=== PATIENT | female | born 1940 | race Caucasian/White ===

== ENCOUNTER → 2016-06-22 | Outpatient (CLI) | payer OTHER ==
[~2016-06-22] MED LIST: ACET-1256 PO; ACET500T26 PO; BISO10TA14 PO; FLV1 PO; MTH25 PO; MULT-506 PO; OXYC-57 PO; PLQ200 PO; PRAV20TA PO; PRED20TA PO; RANI150T2 PO
[2016-06-22 11:04] LABS: BASO % 0.5 %; BASO ABS # 0.04 K/uL (0-0.2); COMPLETE YES; EOS % 4.5 %; HEMATOCRIT 38.4 % (37-47); IG% 0.2 %; LYMPH % 25.6 %; LYMPH ABS # 2.12 K/uL (1.2-3.4); MEAN CELL VOLUME 86.3 fL (80-100); MEAN CORPUSCULAR HEMOGLOBIN 28.5 pg (25-34); MEAN CORPUSCULAR HGB CONC 33.1 g/dl (32-36); MEAN PLATELET VOLUME 9.9 fL (7.4-10.4); MONO % 8.1 %; NEUT % 61.1 %; PLATELET COUNT 360 K/uL (130-400); RED BLOOD COUNT 4.45 M/uL (4.2-5.4); WHITE BLOOD COUNT 8.29 K/uL (4.8-10.8)
[2016-06-22 11:38] LABS: ALT/SGPT 17 U/L (12-78); AST/SGOT 18 U/L (15-37); CREATININE 0.74 mg/dl (0.60-1.20)
[2016-06-22 11:41] LABS: ALKALINE PHOSPHATASE 78 U/L (45-117)
== END | disposition home or self-care (01) ==
LOC: C.LAB1850 10:05
PROVIDERS: ATTEND Internal Medicine Rheumatology
DX: M06.041 Rheumatoid arthritis without rheumatoid factor, right hand (principal); M06.042 Rheumatoid arthritis without rheumatoid factor, left hand; Z79.899 Other long term (current) drug therapy

== ENCOUNTER → 2016-11-10 | Outpatient (CLI) | payer OTHER ==
[2016-11-10 12:22] LABS: BASO % 0.4 %; BASO ABS # 0.03 K/uL (0-0.2); COMPLETE YES; EOS % 4.3 %; HEMATOCRIT 41.2 % (37-47); IG% 0.1 %; LYMPH % 28.8 %; MEAN CELL VOLUME 90.2 fL (80-100); MEAN CORPUSCULAR HEMOGLOBIN 29.1 pg (25-34); MEAN CORPUSCULAR HGB CONC 32.3 g/dl (32-36); MEAN PLATELET VOLUME 10.5 fL (7.4-10.4); MONO % 7.6 %; NEUT % 58.8 %; PLATELET COUNT 339 K/uL (130-400); RED BLOOD COUNT 4.57 M/uL (4.2-5.4); WHITE BLOOD COUNT 7.65 K/uL (4.8-10.8)
[2016-11-10 12:42] LABS: ALT/SGPT 16 U/L (12-78); AST/SGOT 21 U/L (15-37); BLOOD UREA NITROGEN 14 mg/dl (7-18); BUN/CREATININE RATIO 19.9 (10-20); CALCIUM 9.3 mg/dl (8.5-10.1); CARBON DIOXIDE 29 mmol/L (21-32); CHLORIDE 103 mmol/L (98-107); CHOLESTEROL 136 mg/dl (0-200); CREATININE 0.71 mg/dl (0.60-1.20); GLUCOSE 79 mg/dl (70-99); SODIUM 141 mmol/L (136-145); TRIGLYCERIDES 113 mg/dl (0-150); VERY LOW DENSITY LIPOPROT CALC 23 mg/dl
[2016-11-10 12:52] LABS: ALB/GLOB RATIO 0.7 (0.9-2); ALKALINE PHOSPHATASE 74 U/L (45-117); CHOLESTEROL/HDL RATIO 3.2; HDL CHOLESTEROL 43 mg/dl; LDL CHOLESTEROL CALCULATED 70 mg/dl
== END | disposition home or self-care (01) ==
LOC: C.LABBFT 07:44
PROVIDERS: ATTEND Internal Medicine
DX: E78.5 Hyperlipidemia, unspecified (principal); I10 Essential (primary) hypertension

== ENCOUNTER 2016-11-14 14:58 | Emergency (ER) | payer OTHER ==
[~2016-11-14] VITALS: Ht 162.6 cm; Wt 59.9 kg
[~2016-11-14 14:58] MED LIST changes: -ACET-1256 PO; -OXYC-57 PO
[2016-11-14 15:12] VITALS: TEMP 36.9; O2SAT 98; Ht 162.6 cm; Wt 59.9 kg
--- NOTE | 2016-11-14 15:17 | EMERGENCY ROOM VISIT NOTE ---
History First contact with patient: 15:08 Stated Complaint: CHEST PAIN History of Present Illness The patient is a 76 year old female who presents to the Emergency Room with complaints of chest pain. History from daughter as the patient has short term memory loss but told her sister the at the time of the event what happened. Around 2pm she called her daughter c/o of chest pain with shortness of breath. She thinks the pain started around 1pm however. Her daughter got there 15 minutes later and she was visibly short of breath and she couldn't help her to calm down. She was holding her lower ribs in pain while lying down on the couch. She told her daughter that it was worse on the right side over her lower ribs. Does not think it is positional, exertional or related to food. After not being able to calm her mother down her daughter called for an ambulance. She is unsure what she was doing when the pain started. No associated nausea or diaphoresis. No pain or shortness of breath since arriving in the ER. 2 days ago had a similar pain across more to right side lasting for around 30 minutes at that time. Review of Systems See HPI for pertinent positives & negatives. A total of 10 systems reviewed and were otherwise negative. Past Medical/Surgical History Medical Problems: (1) Gastric ulcer (2) Hypertension (3) Rheumatoid arthritis Family History No pertinent family history Social History Smoking Status: Never Smoker Drug Use: none Housing Status: lives with family Current/Historical Medications Scheduled Bisoprolol/Hctz (Ziac 10MG/6.25MG), 2 TAB PO DAILY Folic Acid (Folic Acid), 1 MG PO 6XWK Hydroxychloroquine Sulfate (Hydroxychloroquine Sulfat), 200 MG PO BID Methotrexate (Methotrexate), 7.5 TABS PO WK Multivitamin (Multivitamin), 1 TAB PO DAILY Pravastatin (Pravachol ), 20 MG PO DAILY Ranitidine HCl (Ranitidine HCl), 150 MG PO BID Allergies Coded Allergies: No Known Allergies (Unverified , 01/09/16) Physical Exam Vital Signs Date Time Temp Pulse Resp B/P (MAP) Pulse Ox O2 Delivery O2 Flow Rate FiO2 11/14/16 18:33 63 18 151/62 100 Room Air 11/14/16 16:31 62 18 129/57 98 Room Air 11/14/16 16:11 62 11/14/16 15:12 36.9 63 18 136/58 98 Room Air 11/14/16 15:12 98 Room Air 11/14/16 15:12 98 Physical Exam VITAL SIGNS: were reviewed as above GENERAL:no acute distress SKIN: Warm dry and pink, no rashes HEAD: Normocephalic and atraumatic EYES: extraocular muscles intact, pupils equal and reactive to light OROPHARYNX: non erythematous, clear and moist NECK: Supple, no adenopathy or meningismus LUNGS: No respiratory distress, clear to auscultation, no accessory muscle use HEART: Regular rate and rhythm, heart sounds 1+2, no murmurs ABDOMEN: Soft and nontender, bowel sounds normal BACK: no CVA tenderness EXTREMITIES: Warm and well perfused, no calf tenderness/swelling, no pedal edema. NEUROLOGICALLY: Awake alert and oriented without focal extremity deficit. Cranial nerves 2-12 intact. There is no facial droop. Speech is clear. Vision is grossly normal. MUSCULOSKELETAL: Good muscle tone. No evidence of trauma Medical Decision & Procedures ER Provider Diagnostic Interpretation: CHEST ONE VIEW PORTABLE CLINICAL HISTORY: bibasal crackles, shortness of breath dyspnea COMPARISON STUDY: 01/09/2016 FINDINGS: The bones soft tissues and hemidiaphragms are normal. The cardiomediastinal silhouette is normal. The lungs are clear. The pulmonary vasculature is normal. IMPRESSION: Negative chest. Electronically signed by: Dorian Johnson M.D. 11/14/2016 3:57 PM Dictated Date/Time: 11/14/2016 3:57 PM Laboratory Results 11/14/16 15:45 Red Blood Count 3.98, Mean Corpuscular Volume 86.2, Mean Corpuscular Hemoglobin 29.1, Mean Corpuscular Hemoglobin Concent 33.8, Mean Platelet Volume 9.5, Neutrophils (%) (Auto) 84.0, Lymphocytes (%) (Auto) 8.2, Monocytes (%) (Auto) 5.9, Eosinophils (%) (Auto) 1.4, Basophils (%) (Auto) 0.2, Neutrophils # (Auto) 9.89, Lymphocytes # (Auto) 0.97, Monocytes # (Auto) 0.70, Eosinophils # (Auto) 0.17, Basophils # (Auto) 0.02 11/14/16 15:45 Test 11/14/16 15:45 11/14/16 17:55 White Blood Count 11.78 K/uL (4.8-10.8) Red Blood Count 3.98 M/uL (4.2-5.4) Hemoglobin 11.6 g/dL (12.0-16.0) Hematocrit 34.3 % (37-47) Mean Corpuscular Volume 86.2 fL (80-100) Mean Corpuscular Hemoglobin 29.1 pg (25-34) Mean Corpuscular Hemoglobin Concent 33.8 g/dl (32-36) Platelet Count 287 K/uL (130-400) Mean Platelet Volume 9.5 fL (7.4-10.4) Neutrophils (%) (Auto) 84.0 % Lymphocytes (%) (Auto) 8.2 % Monocytes (%) (Auto) 5.9 % Eosinophils (%) (Auto) 1.4 % Basophils (%) (Auto) 0.2 % Neutrophils # (Auto) 9.89 K/uL (1.4-6.5) Lymphocytes # (Auto) 0.97 K/uL (1.2-3.4) Monocytes # (Auto) 0.70 K/uL (0.11-0.59) Eosinophils # (Auto) 0.17 K/uL (0-0.5) Basophils # (Auto) 0.02 K/uL (0-0.2) RDW Standard Deviation 42.4 fL (36.4-46.3) RDW Coefficient of Variation 13.5 % (11.5-14.5) Immature Granulocyte % (Auto) 0.3 % Immature Granulocyte # (Auto) 0.03 K/uL (0.00-0.02) Anion Gap 10.0 mmol/L (3-11) Est Creatinine Clear Calc Drug Dose 48.8 ml/min Estimated GFR () 76.6 Estimated GFR (Non- 66.1 BUN/Creatinine Ratio 17.9 (10-20) Calcium Level 8.6 mg/dl (8.5-10.1) Total Bilirubin 0.4 mg/dl (0.2-1) Direct Bilirubin 0.2 mg/dl (0-0.2) Aspartate Amino Transf (AST/SGOT) 90 U/L (15-37) Alanine Aminotransferase (ALT/SGPT) 51 U/L (12-78) Alkaline Phosphatase 134 U/L (45-117) Troponin I < 0.015 ng/ml (0-0.045) Total Protein 6.8 gm/dl (6.4-8.2) Albumin 2.9 gm/dl (3.4-5.0) Lipase 259 U/L (73-393) Urine Color DK YELLOW Urine Appearance CLEAR (CLEAR) Urine pH 8.5 (4.5-7.5) Urine Specific [place] 1.022 (1.000-1.030) Urine Protein NEG (NEG) Urine Glucose (UA) NEG (NEG) Urine Ketones NEG (NEG) Urine Occult Blood NEG (NEG) Urine Nitrite NEG (NEG) Urine Bilirubin NEG (NEG) Urine Urobilinogen NEG (NEG) Urine Leukocyte Esterase TRACE (NEG) Urine WBC (Auto) 1-5 /hpf (0-5) Urine RBC (Auto) 0-4 /hpf (0-4) Urine Hyaline Casts (Auto) 1-5 /lpf (0-5) Urine Epithelial Cells (Auto) >30 /lpf (0-5) Urine Bacteria (Auto) 1+ (NEG) Medications Administered Medications (Trade) Dose Ordered Sig/Fausto Route Start Time Stop Time Status Last Admin Dose Admin Sodium Chloride 500 ml @ 999 mls/hr Q31M STAT IV 11/14/16 17:23 11/14/16 17:53 DC 11/14/16 17:40 999 MLS/HR ECG Indication: chest pain Rate (beats per minute): 61 Rhythm: normal sinus Findings: no acute ischemic change, other (left axis deviation) Change: no significant change (Jan 09 2016) ED Course 15:15 Complete history and physical performed 15:[address] Medeiros, LFTs and lipase added to labs 17:20 Patient was reassessed and continues to be pain free with no shortness of breath 18:50 Rectal exam performed, FOB negative (see examination) Medical Decision Prior records/ancillary studies reviewed. Triage Nursing notes reviewed. Additional history obtained from patient and her daughter. The patient's history was concerning for chest pain. Differential diagnosis: Etiologies such as cardiac ischemia, aortic dissection, pulmonary embolism, pneumonia, pneumothorax, musculoskeletal, infections, pericarditis, myocarditis , esophageal rupture, gastrointestinal, as well as others were entertained. Physical examination: As above. ER treatment provided: (ASA 324mg and nitro 0.4mg SL given by EMS) NSS 1L bolus On reassessment the patient felt better. Diagnostic interpretation by me: The electrocardiogram was negative for pathologic change. The labs revealed mild leukocytosis, mild acute anemia, slightly elevated AST and ALP. Troponin negative. Repeat troponin pending when handed over to Dr Mala BOJORQUEZ added due to mild leukocytosis and methotrexate use. Most likely reflect contamination from skin michelle but will culture and call patient if positive Rectal examination was performed due to drop in Hgb however FOB was negative. Imaging studies: Chest x-ray as above By the evaluation outlined above emergent etiologies such as cardiac ischemia, aortic dissection, pulmonary embolism, pneumonia, pneumothorax, infections, pericarditis, myocarditis, gastrointestinal, as well as others were deemed relatively unlikely. The cause of her chest pain is unclear currently but possible due to acute anxiety as previous episode in Dec 2015 appears similar to this. The patient and her daughter were informed about the findings as listed above. All questions were answered and she was pleased with the treatment. Return instructions were outlined and the patient was discharged in stable condition. She was without pain or shortness of breath throughout her ER visit. Referral: The patient was referred back to her primary care physician for follow-up in 4 days as previously arranged for a recheck of the current condition. She was referred back to her PCP regarding her elevated blood pressure. Impression Primary Impression: Atypical chest pain Departure Information Dispostion Home / Self-Care Condition GOOD Referrals Bin Mckinnon M.D. (PCP) Additional Instructions You were evaluated in the ER for chest pain and shortness of breath. In the ER your symptoms had resolved. No cause of you pain or shortness of breath was found on labs, CXR or EKG. It is important you therefore follow up with your PCP as previously arranged on Wednesday. Routine labs did show an mildly elevated WBC and mild anemia but are unlikely to be causes for your current admission. Recommend you also follow up with your PCP regarding this. Please return to the ER if you develop more chest pain, shortness of breath, fevers or chills or are concerned. Resident Tracking Resident Involvement: Resident Care Provided Care Provided: Adult ED
--- NOTE | 2016-11-14 15:59 | DIAGNOSTIC IMAGING REPORT ---
CHEST ONE VIEW PORTABLE CLINICAL HISTORY: bibasal crackles, shortness of breath dyspnea COMPARISON STUDY: 01/09/2016 FINDINGS: The bones soft tissues and hemidiaphragms are normal. The cardiomediastinal silhouette is normal. The lungs are clear. The pulmonary vasculature is normal. IMPRESSION: Negative chest. Electronically signed by: Dorian Johnson M.D. 11/14/2016 3:57 PM Dictated Date/Time: 11/14/2016 3:57 PM
[2016-11-14 16:06] LABS: HEMATOCRIT 34.3 % (37-47); MEAN CELL VOLUME 86.2 fL (80-100); MEAN CORPUSCULAR HEMOGLOBIN 29.1 pg (25-34); MEAN CORPUSCULAR HGB CONC 33.8 g/dl (32-36); MEAN PLATELET VOLUME 9.5 fL (7.4-10.4); PLATELET COUNT 287 K/uL (130-400); RED BLOOD COUNT 3.98 M/uL (4.2-5.4); WHITE BLOOD COUNT 11.78 K/uL (4.8-10.8)
[2016-11-14 16:22] LABS: ALT/SGPT 51 U/L (12-78); AST/SGOT 90 U/L (15-37); BLOOD UREA NITROGEN 15 mg/dl (7-18); BUN/CREATININE RATIO 17.9 (10-20); CALCIUM 8.6 mg/dl (8.5-10.1); CARBON DIOXIDE 26 mmol/L (21-32); CHLORIDE 104 mmol/L (98-107); CREATININE 0.86 mg/dl (0.60-1.20); GLUCOSE 132 mg/dl (70-99); POTASSIUM 3.3 mmol/L (3.5-5.1); SODIUM 140 mmol/L (136-145)
[2016-11-14 16:26] LABS: ALKALINE PHOSPHATASE 134 U/L (45-117)
[2016-11-14 16:29] LABS: BASO % 0.2 %; BASO ABS # 0.02 K/uL (0-0.2); COMPLETE YES; EOS % 1.4 %; IG% 0.3 %; LYMPH % 8.2 %; LYMPH ABS # 0.97 K/uL (1.2-3.4); MONO % 5.9 %
--- NOTE | 2016-11-14 16:34 | EMERGENCY ROOM VISIT NOTE ---
History Report prepared by Tony: Jenaro Bosch Under the Supervision of: Dr. Christopher Medeiros M.D. First contact with patient: 15:07 Stated Complaint: CHEST PAIN History of Present Illness The patient is a 76 year old female who presents to the Emergency Room by EMS with complaints of an episode of lower chest pain occurring 2.5 hours ago. She is currently pain free. She estimates that her pain lasted for about 1 hour total. Per daughter, the patient has severe problems with short-term memory. She states that the patient also complained of shortness of breath, but currently has none. The patient denies any nausea or diaphoresis. She has no history of PR. She has a history of similar symptoms occurring last year with uncertain cause. The patient was given 4 nitroglycerin and 1 baby aspirin en route. Her daughter states that the patient has been having her problems with short term memory for many years, but that they have slowly been getting worse. She notes that the patient has never had a head CT, but that her PCP is aware of her memory difficulties. Source of History: patient, family (daughter) Onset: 2.5 hours ago Position: chest (lower) Symptom Intensity: 1 hour total Timing: other (episode) Associated Symptoms: + SOB (resolved), No diaphoresis, No nausea Review of Systems See HPI for pertinent positives & negatives. A total of 10 systems reviewed and were otherwise negative. Past Medical & Surgical Medical Problems: (1) Hypertension Family History No pertinent family history Social History Smoking Status: Never Smoker Drug Use: none Housing Status: lives with family Current/Historical Medications Scheduled Bisoprolol/Hctz (Ziac 10MG/6.25MG), 2 TAB PO DAILY Folic Acid (Folic Acid), 1 MG PO 6XWK Hydroxychloroquine Sulfate (Hydroxychloroquine Sulfat), 200 MG PO BID Methotrexate (Methotrexate), 7.5 TABS PO WK Multivitamin (Multivitamin), 1 TAB PO DAILY Pravastatin (Pravachol ), 20 MG PO DAILY Ranitidine HCl (Ranitidine HCl), 150 MG PO BID Allergies Coded Allergies: No Known Allergies (Unverified , 01/09/16) Physical Exam Vital Signs Date Time Temp Pulse Resp B/P (MAP) Pulse Ox O2 Delivery O2 Flow Rate FiO2 11/14/16 18:33 63 18 151/62 100 Room Air 6/17/17 16:31 62 18 129/57 98 Room Air 11/14/16 16:11 62 11/14/16 15:12 36.9 63 18 136/58 98 Room Air 11/14/16 15:12 98 Room Air 11/14/16 15:12 98 Physical Exam GENERAL: Patient is in no acute distress. HEENT: No acute trauma, normocephalic atraumatic, mucous membranes moist, no nasal congestion, no scleral icterus. NECK: No stridor, no adenopathy, no meningismus, trachea is midline. LUNGS: Crackles at the bases bilaterally. Upper lungs are clear. No wheezing. No respiratory distress. HEART: 2/6 systolic murmur with a regular rate and rhythm. ABDOMEN: Soft, nontender, bowel sounds positive, no hernias, no peritonitis. EXTREMITIES: No cyanosis or edema, full range of motion of all the joints without pain or difficulty, no signs for acute trauma. NEUROLOGIC: Awake and alert. No focal motor deficits. Short term memory issues noted. SKIN: No rash, no jaundice, no diaphoresis. Medical Decision & Procedures ER Provider Diagnostic Interpretation: X-ray results as stated below per interpretation by me and the radiologist: CHEST ONE VIEW PORTABLE FINDINGS: The bones soft tissues and hemidiaphragms are normal. The cardiomediastinal silhouette is normal. The lungs are clear. The pulmonary vasculature is normal. IMPRESSION: Negative chest. Electronically signed by: Dorian Johnson M.D. Laboratory Results 11/14/16 15:45 Red Blood Count 3.98, Mean Corpuscular Volume 86.2, Mean Corpuscular Hemoglobin 29.1, Mean Corpuscular Hemoglobin Concent 33.8, Mean Platelet Volume 9.5, Neutrophils (%) (Auto) 84.0, Lymphocytes (%) (Auto) 8.2, Monocytes (%) (Auto) 5.9, Eosinophils (%) (Auto) 1.4, Basophils (%) (Auto) 0.2, Neutrophils # (Auto) 9.89, Lymphocytes # (Auto) 0.97, Monocytes # (Auto) 0.70, Eosinophils # (Auto) 0.17, Basophils # (Auto) 0.02 11/14/16 15:45 Test 11/14/16 15:45 11/14/16 17:45 11/14/16 17:55 White Blood Count 11.78 K/uL (4.8-10.8) Red Blood Count 3.98 M/uL (4.2-5.4) Hemoglobin 11.6 g/dL (12.0-16.0) Hematocrit 34.3 % (37-47) Mean Corpuscular Volume 86.2 fL (80-100) Mean Corpuscular Hemoglobin 29.1 pg (25-34) Mean Corpuscular Hemoglobin Concent 33.8 g/dl (32-36) Platelet Count 287 K/uL (130-400) Mean Platelet Volume 9.5 fL (7.4-10.4) Neutrophils (%) (Auto) 84.0 % Lymphocytes (%) (Auto) 8.2 % Monocytes (%) (Auto) 5.9 % Eosinophils (%) (Auto) 1.4 % Basophils (%) (Auto) 0.2 % Neutrophils # (Auto) 9.89 K/uL (1.4-6.5) Lymphocytes # (Auto) 0.97 K/uL (1.2-3.4) Monocytes # (Auto) 0.70 K/uL (0.11-0.59) Eosinophils # (Auto) 0.17 K/uL (0-0.5) Basophils # (Auto) 0.02 K/uL (0-0.2) RDW Standard Deviation 42.4 fL (36.4-46.3) RDW Coefficient of Variation 13.5 % (11.5-14.5) Immature Granulocyte % (Auto) 0.3 % Immature Granulocyte # (Auto) 0.03 K/uL (0.00-0.02) Anion Gap 10.0 mmol/L (3-11) Est Creatinine Clear Calc Drug Dose 48.8 ml/min Estimated GFR () 76.6 Estimated GFR (Non- 66.1 BUN/Creatinine Ratio 17.9 (10-20) Calcium Level 8.6 mg/dl (8.5-10.1) Total Bilirubin 0.4 mg/dl (0.2-1) Direct Bilirubin 0.2 mg/dl (0-0.2) Aspartate Amino Transf (AST/SGOT) 90 U/L (15-37) Alanine Aminotransferase (ALT/SGPT) 51 U/L (12-78) Alkaline Phosphatase 134 U/L (45-117) Total Protein 6.8 gm/dl (6.4-8.2) Albumin 2.9 gm/dl (3.4-5.0) Lipase 259 U/L (73-393) Urine Color DK YELLOW Urine Appearance CLEAR (CLEAR) Urine pH 8.5 (4.5-7.5) Urine Specific [place] 1.022 (1.000-1.030) Urine Protein NEG (NEG) Urine Glucose (UA) NEG (NEG) Urine Ketones NEG (NEG) Urine Occult Blood NEG (NEG) Urine Nitrite NEG (NEG) Urine Bilirubin NEG (NEG) Urine Urobilinogen NEG (NEG) Urine Leukocyte Esterase TRACE (NEG) Urine WBC (Auto) 1-5 /hpf (0-5) Urine RBC (Auto) 0-4 /hpf (0-4) Urine Hyaline Casts (Auto) 1-5 /lpf (0-5) Urine Epithelial Cells (Auto) >30 /lpf (0-5) Urine Bacteria (Auto) 1+ (NEG) Point of care troponin testing 2 hours after the initial troponin was negative. Laboratory results reviewed by me. Medications Administered Medications (Trade) Dose Ordered Sig/Fausto Route Start Time Stop Time Status Last Admin Dose Admin Sodium Chloride 500 ml @ 999 mls/hr Q31M STAT IV 11/14/16 17:23 11/14/16 17:53 DC 11/14/16 17:40 999 MLS/HR ECG Indication: chest pain Rate (beats per minute): 61 Rhythm: normal sinus Findings: no acute ischemic change, no ectopy, other (LVH) ED Course 1510: The patient was evaluated in room C5. A complete history and physical exam was performed. 172: Ordered Sodium Chloride 500 ml @ 999 mls/hr IV. 1909: Reevaluated the patient. Discussed results and discharge instructions: she verbalized understanding and agreement. The patient is ready for discharge. Medical Decision The patient is a 76 year old female who presents to the ED with complaints of chest pain. Differential diagnoses considered include PR, gastritis, biliary colic, pancreatitis, cardiac ischemia, pneumonia, and musculoskeletal pain. There is a mild leukocytosis, this could be consistent with infection or just the stress of her presentation. No concerning anemia. No significant electrolyte abnormality or kidney failure. There were a few very mild liver enzyme elevations. No pancreatitis by our testing. Urinalysis does not show infection. Chest x-ray does not show pneumonia or mediastinal widening, there was no CHF. EKG shows a normal sinus rhythm with LVH, no acute ischemia. Cardiac enzyme testing 2 is not suggestive of acute cardiac injury. As per the resident who was working on this case, stool heme testing was negative. The patient was given IV saline, she has had no recurrence of pain. She is anxious for discharge, at this point, the cause for the pain is unclear. She has had similar types of pain before with negative workups. She does not want to stay in the hospital. She was discharged to return if worsening. Medication Reconciliation: I attest that I have personally reviewed the patient' s current medication list. Blood pressure screening: Patient was found to have a slightly elevated blood pressure due to circumstances. I do not believe that the patient requires hypertension monitoring. Impression Primary Impression: Precordial chest pain Scribe Attestation The scribe's documentation has been prepared under my direction and personally reviewed by me in its entirety. I confirm that the note above accurately reflects all work, treatment, procedures, and medical decision making performed by me. Departure Information Dispostion Home / Self-Care Referrals Bin Mckinnon M.D. (PCP) Forms HOME CARE DOCUMENTATION FORM, IMPORTANT VISIT INFORMATION Additional Instructions You were evaluated in the ER for chest pain and shortness of breath. In the ER your symptoms had resolved. No cause of you pain or shortness of breath was found on labs, CXR or EKG. It is important you therefore follow up with your PCP as previously arranged on Wednesday. Routine labs did show an mildly elevated WBC and mild anemia but are unlikely to be causes for your current admission. Recommend you also follow up with your PCP regarding this. Please return to the ER if you develop more chest pain, shortness of breath, fevers or chills or are concerned.
[2016-11-14] MEDS ORDERED: SODIUM CHLORIDE 0.9% 500ML 500 ML IV STA (17:23)
[2016-11-14 18:07] LABS: URINE APPEARANCE CLEAR (CLEAR); URINE BILIRUBIN NEG (NEG); URINE COLOR DK YELLOW; URINE EPITHELIAL CELL AUTO >30 /lpf (0-5); URINE NITRITE NEG (NEG); URINE PH 8.5 (4.5-7.5); URINE SPECIFIC GRAVITY 1.022 (1.000-1.030); UROBILINOGEN NEG (NEG); ZZUR CULT IF INDIC CLEAN CATCH YES
[2016-11-14 18:21] LABS: MANUAL MICROSCOPIC REQUIRED? NO; REVIEW REQ? NO
[2016-11-14 18:24] LABS: SULFASALICYLIC ACID NEG (NEG)
[2016-11-14 18:33] VITALS: BP 151/62; PULSE 63; O2SAT 100
[2016-12-11] MEDS ORDERED: PRED20TA PO (15:05)
[2016-12-11] MEDS ORDERED: ACET-1256 PO (15:05)
== END 2016-11-14 19:10 | disposition home or self-care (01) ==
LOC: EDBD 14:58 → C.EDC 14:59
DX: R07.2 Precordial pain (principal); I10 Essential (primary) hypertension; Z79.899 Other long term (current) drug therapy

== ENCOUNTER → 2016-11-27 | Outpatient (CLI) | payer OTHER ==
[~2016-11-27] MED LIST changes: +ACET-1256 PO; -ACET500T26 PO; +OXYC-57 PO
--- NOTE | 2016-11-27 09:42 | DIAGNOSTIC IMAGING REPORT ---
CHEST CT WITHOUT CONTRAST CT DOSE: 203.56 mGy.cm HISTORY: Pulmonary nodules PULM NODULE/ RUQ PAIN TECHNIQUE: Multiaxial CT images of the chest were performed without contrast. COMPARISON: 09/03/2015 FINDINGS: Scattered basilar interstitial and/or fibrotic change. There may be a component of mild underlying bronchiectatic change. No significant or progressive pulmonary nodularity. Several small mediastinal nodes unchanged in the prior study. Several small axillary nodes also stable. Heart remains mildly enlarged. Limited evaluation of the upper abdomen is unremarkable. IMPRESSION: Stable to slightly improved exam. 2. Chronic bibasilar interstitial and bronchiectatic change. 3. No evidence for new or additional or progressive pulmonary nodularity. 4. Stable nonspecific mediastinal and axillary freedom change. Electronically signed by: Dorian Johnson M.D. 11/27/2016 9:40 AM Dictated Date/Time: 11/27/2016 9:19 AM
--- NOTE | 2016-11-27 09:51 | DIAGNOSTIC IMAGING REPORT ---
ABDOMINAL ULTRASOUND, RIGHT UPPER QUADRANT HISTORY: Right upper quadrant abdominal pain.. COMPARISON: None. FINDINGS: Pancreas: The pancreatic head and tail are obscured by overlying bowel gas. The remaining portions of the pancreas are within normal limits. Liver: The liver is echogenic consistent with fatty change. Gallbladder: Multiple small gallstones. No gallbladder wall thickening. CBD: 4 mm. Right kidney: No hydronephrosis. IMPRESSION: 1. Cholelithiasis. 2. Mild hepatic steatosis. Electronically signed by: Ruben Willis M.D. 11/27/2016 9:49 AM Dictated Date/Time: 11/27/2016 9:48 AM
== END | disposition home or self-care (01) ==
LOC: C.CTS 09:02
PROVIDERS: ATTEND Internal Medicine
DX: R91.8 Other nonspecific abnormal finding of lung field (principal); R10.11 Right upper quadrant pain; K80.20 Calculus of gallbladder without cholecystitis without obstruction

== ENCOUNTER → 2016-12-23 | Outpatient (CLI) | payer OTHER ==
--- NOTE | 2016-12-23 10:30 | DIAGNOSTIC IMAGING REPORT ---
C-SPINE ROUTINE W/FLEX EXT HISTORY: Pain. Arthritis. M06.041 Rheumatoid arthritis involving both hands with negative COMPARISON: None. FINDINGS: The cervical spine is visualized from C1 through the superior endplate of T1. There is no fracture. No evidence for positional subluxation. C5-C6 fusion. Degenerative disc change C3-C4 and C4-C5. Prevertebral soft tissues and the atlantodens interval are intact. IMPRESSION: Degenerative and postoperative change. No evidence for positional subluxation. Alignment remains anatomic throughout. Moderate osteophytic narrowing of the bulk of the neural foramina bilaterally. The above report was generated using voice recognition software. It may contain grammatical, syntax or spelling errors. Electronically signed by: Dorian Johnson M.D. 12/23/2016 10:29 AM Dictated Date/Time: 12/23/2016 10:27 AM
== END | disposition home or self-care (01) ==
LOC: C.RAD1850 10:06
PROVIDERS: ATTEND Internal Medicine Rheumatology
DX: M06.041 Rheumatoid arthritis without rheumatoid factor, right hand (principal); M06.042 Rheumatoid arthritis without rheumatoid factor, left hand; Z79.899 Other long term (current) drug therapy

== ENCOUNTER 2017-01-14 07:43 | Day surgery (SDC) | payer OTHER ==
[~2017-01-14] VITALS: Ht 165.1 cm; Wt 56.8 kg
[~2017-01-14 07:43] MED LIST changes: +LACTATED RINGER'S 1000ML 1,000 ML IV SCH; -OXYC-57 PO
[2017-01-14 08:10] VITALS: BP 132/57; PULSE 55; TEMP 36.6; O2SAT 96; Ht 165.1 cm; Wt 56.8 kg
[2017-01-14] MEDS ORDERED: FENTANYL CITRATE INJ 50 MCG/1 ML 2 ML VIAL ONE ×2 (08:56→09:54)
--- NOTE | 2017-01-14 09:03 | History & Physical Bridge Note ---
H&P Re-Evaluation Bridge Note: I have examined the patient, reviewed the History & Physical and in the interval since the performance of the History & Physical I have noted the following changes of clinical significance: No changes noted all questions answered SO at bedside
[2017-01-14] MEDS ORDERED: LIDOCAINE/EPINEPHRINE 1% 20 ML VIAL ONE (09:17)
[2017-01-14] MEDS ORDERED: CONRAY 60% 50 ML VIAL ONE (09:17)
[2017-01-14] MEDS ORDERED: LIDOCAINE HCL 2% 2 ML VIAL (20MG/ML) ONE (09:46)
[2017-01-14] MEDS ORDERED: DEXAMETHASONE SOD INJ 4 MG/ML VIAL ONE (09:46)
[2017-01-14] MEDS ORDERED: EpHEDrine SULFATE INJ 50 MG/ML AMP ONE (09:46)
[2017-01-14] MEDS ORDERED: ONDANSETRON INJ 2 MG/ML 2 ML VIAL ONE (09:46)
[2017-01-14] MEDS ORDERED: ROCURONIUM BROMIDE 10 MG/ML 5 ML VIAL ONE (09:46)
[2017-01-14] MEDS ORDERED: PROPOFOL IV EMULSION 10 MG/ML 20 ML VIAL IV ONE (09:46)
[2017-01-14] MEDS ORDERED: ONDANSETRON INJ 2 MG/ML 2 ML VIAL IV PRN ×2 (10:00→10:30)
[2017-01-14] MEDS ORDERED: FENTANYL CITRATE INJ 50 MCG/1 ML 2 ML VIAL IV PRN (10:00)
[2017-01-14] MEDS ORDERED: KETOROLAC TROMETHAMINE 30 MG/ML VIAL IV. PRN (10:00)
[2017-01-14] MEDS ORDERED: LABETALOL HCL IV 5 MG/ML 20ML IV PRN (10:00)
[2017-01-14] MEDS ORDERED: ATROPINE SULFATE 0.1 MG/ML 5ML SYR IV PRN (10:00)
--- NOTE | 2017-01-14 10:08 | DIAGNOSTIC IMAGING REPORT ---
INTRAOPERATIVE CHOLANGIOGRAM HISTORY: Post cholecystectomy. FLUOROSCOPY TIME: 2 seconds. 3 fluoroscopic spot images. FINDINGS: Fluoroscopy was provided for an intraoperative cholangiogram status post cholecystectomy. Contrast was injected through the cystic duct remnant. The common bile duct is normal in course and caliber. There are no filling defects seen within the common bile duct to suggest a retained stone. Contrast extends into the small bowel. There is no intrahepatic bile duct dilatation. IMPRESSION: Fluoroscopy provided for an intraoperative cholangiogram status post cholecystectomy. No filling defects within the common bile duct. Electronically signed by: Ruben Willis M.D. 01/14/2017 10:06 AM Dictated Date/Time: 01/14/2017 10:06 AM
[2017-01-14] MEDS ORDERED: NEOSTIGMINE METHYLSULFATE 5 MG/5 ML SYR ONE (10:15)
[2017-01-14] MEDS ORDERED: GLYCOPYRROLATE INJ 0.2 MG/ML VIAL ONE (10:15)
[2017-01-14] MEDS ORDERED: LACTATED RINGER'S 1000ML 1,000 ML IV SCH (10:27)
[2017-01-14] MEDS ORDERED: OXYC-57 PO (10:28)
[2017-01-14] MEDS ORDERED: OXYCODONE/ACETAMINOPHEN 5-325 TAB PO PRN (10:30)
[2017-01-14] MEDS ORDERED: MoRPHine SULFATE 4 MG/ML 1 ML CARP\\VIAL IV PRN (10:30)
--- NOTE | 2017-01-14 10:30 | Discharge Instructions ---
Discharge Instructions Date of Service Jan 14, 2017. Visit Reason for Visit: Gallbladder Stones Discharge Discharge Diagnosis / Problem: laparoscopic cholecystectomy Discharge Goals Goal(s): Decrease discomfort Activity Recommendations Activity Limitations: as noted below Lifting Limitations: no more than 10 pounds Shower/Bathe: tomorrow Driving or Machine Use: resume 3 days after discharge Anesthesia . Post Anesthesia Instructions: If you have had General Anesthesia or IV Sedation: * Do not drive today. * Resume driving when surgeon permits. * Do not make important decisions or sign legal documents today. * Call surgeon for: 1. Temperature elevations greater than 101 degrees F. 2. Uncontrollable pain. 3. Excessive bleeding. 4. Persistent nausea and vomiting. 5. Medication intolerance (nausea, vomiting or rash). * For nausea and vomiting use only clear liquids such as: tea, soda, bouillon until nausea subsides, then gradually increase diet as tolerated. * If you have any concerns or questions, call your surgeon's office. If physician is unavailable and it is an emergency, call 911 or go to the nearest emergency room. . Instructions / Follow-Up Instructions / Follow-Up Dr. Cisneros in 1 week, call [phone] for any questions or concerns You can resume Tylenol when not taking Percocet Diet Recommendations Recommended Home Diet: no limitations Procedures Procedures Performed: Laparoscopic Cholecystectomy with Cholangiogram Pending Studies Studies pending at discharge: no Medical Emergencies . Who to Call and When: Medical Emergencies: If at any time you feel your situation is an emergency, please call 911 immediately. . Non-Emergent Contact Non-Emergency issues call your: Surgeon Call Non-Emergent contact if: you have a fever, temperature is above 101.5, your pain is not controlled, wound has increased redness, you have any medication questions . . "Provider Documentation" section prepared by Genaro Khan. . [place] Drug Monitoring Program Search Results: no issues identified
--- NOTE | 2017-01-14 10:32 | [facility] Operative Report ---
Operative Report Operative Date Jan 14, 2017. Pre-Operative Diagnosis Cholelithiasis Post-Operative Diagnosis Same Procedure(s) Performed Laparoscopic Cholecystectomy with Cholangiogram Surgeon Dr Cisneros Roofer Hel[employer] Surgeon(s) Genaro Khan PA-C Estimated Blood Loss 5ML Findings ccc Specimens A. Gallbladder Description of Procedure OR summary dictated confirmation number [id number] I attest to the content of the Intraoperative Record and any orders documented therein. Any exceptions are noted below.
--- NOTE | 2017-01-14 10:47 | OPERATIVE REPORT ---
DATE OF OPERATION: 01/14/2017 PREOPERATIVE DIAGNOSIS: Chronic cholecystitis, cholelithiasis. POSTOPERATIVE DIAGNOSIS: Same. OPERATIVE PROCEDURE: Laparoscopic cholecystectomy, intraoperative cholangiogram. SURGEON: Dr. Cisneros. CLINICAL RADIOLOGIST: Tommy Khan PA-C. OPERATION AND FINDINGS: SUMMARY: After induction of general endotracheal anesthesia, the patient's abdomen was prepped with Betadine scrubbing solution and properly draped. A small incision was made supraumbilically sufficient enough to place a Veress needle followed by CO2 followed by 5 mm trocar. Point of entry inspected and no injury identified. Under direct visualization, we placed 5 mm epigastric, two 5 mm subcostal ports. Gallbladder was identified, it was quite long. We placed it under traction, dissected out the course at the triangle of Calot. The patient had a very large artery coming up towards the neck of the gallbladder that we were able to identify after we had identified easily the cystic duct, placed a clip proximally. A #4 ureteral catheter transversed the abdominal wall was positioned in the cystic duct. Serial x-rays were taken, free flow into duodenum, no obstruction. Cystic duct was doubly clipped and divided. At this point, we were able to see a large vessel which was going and coursing at the neck of the gallbladder going posteriorly. We freed this up and identified the cystic artery coming up to the gallbladder which was away from it, normal caliber. We doubly clipped and divided and the gallbladder removed in antegrade fashion using mostly blunt dissection and electrocautery at 25. Brought it up, elevated from the liver bed. A few bleeders from the liver bed were controlled. Gallbladder placed in an Endopouch and taken out intact through the epigastric port. The patient had significant gallbladder filled with small stones, bilirubinate type. The subhepatic and suprahepatic area was then checked for hemostasis. A few oozers from the gallbladder fossa were cauterized. The scope was then placed in the right upper quadrant port to visualize the umbilical opening. There were no adhesions appreciated there. Individual trocars removed under direct visualization, last umbilical trocar. Wounds were closed with 4-0 Monocryl. Steri-Strips applied. The procedure was tolerated well by the patient. Estimated blood loss approximately 5 mL. The patient was taken to recovery room in good condition. I attest to the content of the Intraoperative Record and any orders documented therein. Any exception s are noted below.
[2017-01-14 11:15] VITALS: BP 140/67; PULSE 54; TEMP 36.6; O2SAT 94
--- NOTE | 2017-01-14 11:16 | Anesthesiology Progress Note ---
Anesthesia Post Op Note Date & Time Jan 14, 2017 at 11:16 Vital Signs Pain Intensity: 0 Vital Signs Past 12 Hours Date Time Temp Pulse Resp B/P (MAP) Pulse Ox O2 Delivery O2 Flow Rate FiO2 01/14/17 11:07 37.1 01/14/17 11:06 53 21 01/14/17 11:06 53 21 94 01/14/17 11:05 127/59 01/14/17 11:01 52 26 01/14/17 11:01 52 26 94 01/14/17 11:00 132/58 01/14/17 10:56 52 22 93 01/14/17 10:56 52 22 01/14/17 10:55 135/59 01/14/17 10:51 52 25 01/14/17 10:51 52 25 99 01/14/17 10:50 134/80 01/14/17 10:47 51 24 01/14/17 10:47 51 24 99 01/14/17 10:45 146/55 01/14/17 10:42 51 21 01/14/17 10:42 51 21 99 01/14/17 10:41 53 23 99 01/14/17 10:41 53 23 01/14/17 10:40 124/67 01/14/17 10:36 57 13 01/14/17 10:36 57 13 99 01/14/17 10:35 142/55 01/14/17 10:31 62 12 01/14/17 10:31 62 12 152/61 99 01/14/17 10:31 36.7 63 10 152/61 99 Mask 15 01/14/17 08:10 36.6 55 20 132/57 (82) 96 Room Air Notes Mental Status: alert / awake / arousable, participated in evaluation Pt Amnestic to Procedure: Yes Nausea / Vomiting: adequately controlled Pain: adequately controlled Airway Patency, RR, SpO2: stable & adequate BP & HR: stable & adequate Hydration State: stable & adequate Anesthetic Complications: no major complications apparent
[2017-01-14 11:45] VITALS: BP 136/65; PULSE 53; O2SAT 95
[2017-01-14 12:15] VITALS: BP 131/60; PULSE 56; O2SAT 99
== END 2017-01-14 12:40 | disposition home or self-care (01) ==
LOC: C.ACU 07:43
PROVIDERS: ATTEND Surgery
DX: K80.10 Calculus of gallbladder with chronic cholecystitis without obstruction (principal); E78.5 Hyperlipidemia, unspecified; I10 Essential (primary) hypertension; E78.00 Pure hypercholesterolemia, unspecified; Z90.710 Acquired absence of both cervix and uterus; Z90.722 Acquired absence of ovaries, bilateral; Z85.820 Personal history of malignant melanoma of skin; Z82.49 Family history of ischemic heart disease and other diseases of the circulatory system

== ENCOUNTER → 2017-05-17 | Outpatient (CLI) | payer OTHER ==
[~2017-05-17] MED LIST changes: -ACET-1256 PO; -LACTATED RINGER'S 1000ML 1,000 ML IV SCH; +OXYC-57 PO
[2017-05-17 12:24] LABS: BASO % 0.3 %; BASO ABS # 0.03 K/uL (0-0.2); COMPLETE YES; EOS % 4.2 %; HEMATOCRIT 39.7 % (37-47); IG% 0.2 %; LYMPH % 21.6 %; MEAN CELL VOLUME 89.8 fL (80-100); MEAN CORPUSCULAR HEMOGLOBIN 28.5 pg (25-34); MEAN CORPUSCULAR HGB CONC 31.7 g/dl (32-36); MONO % 7.4 %; NEUT % 66.3 %; PLATELET COUNT 396 K/uL (130-400); RED BLOOD COUNT 4.42 M/uL (4.2-5.4)
[2017-05-17 12:39] LABS: ALT/SGPT 17 U/L (12-78); BLOOD UREA NITROGEN 17 mg/dl (7-18); BUN/CREATININE RATIO 23.9 (10-20); CALCIUM 9.1 mg/dl (8.5-10.1); CARBON DIOXIDE 30 mmol/L (21-32); CHLORIDE 102 mmol/L (98-107); CHOLESTEROL 123 mg/dl (0-200); GLUCOSE 101 mg/dl (70-99); POTASSIUM 3.9 mmol/L (3.5-5.1); SODIUM 138 mmol/L (136-145)
[2017-05-17 12:50] LABS: ALB/GLOB RATIO 0.7 (0.9-2); ALKALINE PHOSPHATASE 83 U/L (45-117); AST/SGOT 21 U/L (15-37); CHOLESTEROL/HDL RATIO 3.2; HDL CHOLESTEROL 39 mg/dl; LDL CHOLESTEROL CALCULATED 46 mg/dl; TRIGLYCERIDES 188 mg/dl (0-150); VERY LOW DENSITY LIPOPROT CALC 38 mg/dl
== END | disposition home or self-care (01) ==
LOC: C.LABBFT 08:47
PROVIDERS: ATTEND Internal Medicine
DX: E78.5 Hyperlipidemia, unspecified (principal); I10 Essential (primary) hypertension; G47.00 Insomnia, unspecified; M06.041 Rheumatoid arthritis without rheumatoid factor, right hand; M06.042 Rheumatoid arthritis without rheumatoid factor, left hand; Z51.81 Encounter for therapeutic drug level monitoring; Z79.899 Other long term (current) drug therapy

== ENCOUNTER → 2017-05-21 | Outpatient (CLI) | payer OTHER ==
[2017-05-21 12:19] LABS: BASO % 0.2 %; BASO ABS # 0.02 K/uL (0-0.2); COMPLETE YES; EOS % 1.3 %; HEMATOCRIT 40.1 % (37-47); IG% 0.2 %; LYMPH % 14.6 %; LYMPH ABS # 1.58 K/uL (1.2-3.4); MEAN CELL VOLUME 88.5 fL (80-100); MEAN CORPUSCULAR HEMOGLOBIN 28.5 pg (25-34); MEAN CORPUSCULAR HGB CONC 32.2 g/dl (32-36); MEAN PLATELET VOLUME 9.9 fL (7.4-10.4); MONO % 4.3 %; NEUT % 79.4 %; PLATELET COUNT 383 K/uL (130-400); RED BLOOD COUNT 4.53 M/uL (4.2-5.4); WHITE BLOOD COUNT 10.81 K/uL (4.8-10.8)
[2017-05-21 12:33] LABS: ALT/SGPT 16 U/L (12-78); AST/SGOT 21 U/L (15-37); CREATININE 0.71 mg/dl (0.60-1.20)
[2017-05-21 12:39] LABS: ALKALINE PHOSPHATASE 80 U/L (45-117)
== END | disposition home or self-care (01) ==
LOC: C.LABBFT 09:11
PROVIDERS: ATTEND Internal Medicine
DX: E78.5 Hyperlipidemia, unspecified (principal); I10 Essential (primary) hypertension; G47.00 Insomnia, unspecified; Z79.899 Other long term (current) drug therapy; M06.041 Rheumatoid arthritis without rheumatoid factor, right hand; M06.042 Rheumatoid arthritis without rheumatoid factor, left hand

== ENCOUNTER → 2017-09-24 | Outpatient (CLI) | payer OTHER ==
[~2017-09-24] MED LIST changes: -OXYC-57 PO
[2017-09-24 12:36] LABS: BASO % 0.2 %; BASO ABS # 0.02 K/uL (0-0.2); EOS % 9.2 %; EOS ABS # 0.79 K/uL (0-0.5); HEMATOCRIT 37.7 % (37-47); HEMOGLOBIN 12.2 g/dL (12.0-16.0); IG# 0.02 K/uL (0.00-0.02); LYMPH % 23.1 %; LYMPH ABS # 1.99 K/uL (1.2-3.4); MEAN CELL VOLUME 86.7 fL (80-100); MEAN CORPUSCULAR HGB CONC 32.4 g/dl (32-36); MEAN PLATELET VOLUME 9.5 fL (7.4-10.4); MONO % 7.9 %; MONO ABS # 0.68 K/uL (0.11-0.59); NEUT % 59.4 %; NEUT ABS # 5.11 K/uL (1.4-6.5); PLATELET COUNT 450 K/uL (130-400); RED CELL DISTRIBUTION WIDTH CV 14.6 % (11.5-14.5); WHITE BLOOD COUNT 8.61 K/uL (4.8-10.8)
[2017-09-24 12:50] LABS: ALBUMIN 2.9 gm/dl (3.4-5.0); ALT/SGPT 17 U/L (12-78); AST/SGOT 20 U/L (15-37); CREATININE 0.74 mg/dl (0.60-1.20)
[2017-09-24 12:53] LABS: ALKALINE PHOSPHATASE 76 U/L (45-117); TOTAL PROTEIN 7.5 gm/dl (6.4-8.2)
== END | disposition home or self-care (01) ==
LOC: C.LAB1850 10:13
PROVIDERS: ATTEND Internal Medicine Rheumatology
DX: M25.569 Pain in unspecified knee (principal)

== ENCOUNTER → 2018-01-21 | Outpatient (CLI) | payer OTHER ==
[2018-01-21 11:11] LABS: BASO % 0.4 %; BASO ABS # 0.04 K/uL (0-0.2); EOS % 8.6 %; EOS ABS # 0.86 K/uL (0-0.5); HEMATOCRIT 36.7 % (37-47); IG# 0.02 K/uL (0.00-0.02); LYMPH ABS # 1.99 K/uL (1.2-3.4); MEAN CELL VOLUME 85.5 fL (80-100); MEAN CORPUSCULAR HGB CONC 32.7 g/dl (32-36); MEAN PLATELET VOLUME 9.4 fL (7.4-10.4); MONO % 7.3 %; MONO ABS # 0.73 K/uL (0.11-0.59); NEUT % 63.5 %; NEUT ABS # 6.31 K/uL (1.4-6.5); PLATELET COUNT 401 K/uL (130-400); RED CELL DISTRIBUTION WIDTH CV 14.6 % (11.5-14.5); RED CELL DISTRIBUTION WIDTH SD 44.8 fL (36.4-46.3); WHITE BLOOD COUNT 9.95 K/uL (4.8-10.8)
== END | disposition home or self-care (01) ==
LOC: C.LAB1850 10:12
PROVIDERS: ATTEND Internal Medicine Rheumatology
DX: Z87.11 Personal history of peptic ulcer disease (principal); M06.041 Rheumatoid arthritis without rheumatoid factor, right hand; M06.042 Rheumatoid arthritis without rheumatoid factor, left hand; Z79.899 Other long term (current) drug therapy

== ENCOUNTER 2020-08-12 16:31 | Inpatient (IN) ==
[2020-08-12] MEDS ORDERED: SODIUM CHLORIDE 0.9% 500 ML IV STA (18:36)
--- NOTE | 2020-08-12 18:54 | Emergency Department Note ---
Impression & Plan Acute confusion, Rectal prolapse, Rectal bleeding, Acute UTI ED Provider Note NAME: GLENN VU AGE: 80 SEX: F : 1940 ARRIVES VIA: Walk-In INFORMANT: [Patient][daughter] ED PROVIDER(S): [Christopher Medeiros MD] CHIEF COMPLAINT: Rectal bleeding HISTORY OF PRESENT ILLNESS: The patient is a 80-year-old female who presents to the ED with rectal bleeding and what the daughter thinks is rectal prolapse. The patient was here yesterday for the same thing. The patient has dementia so, it is hard sometimes to get a history from her. The daughter gave most of the story. Patient does not seem to be in pain. Today, there was a fullness in the rectal area noted and there was some bleeding. The patient was brought for evaluation. The patient's daughter states that her mom is living in a senior center and has no help or care. She does not think her mom is currently able to stay in that living situation. She needs a higher level of care such as [facility]. She does not feel that her mother is safe for discharge back to her senior center. The patient denies any pain currently. She is resting comfortably. She cannot remember if she was straining when the prolapse happened today but, she says she does remember the prolapse happening once before when she tried to have a bowel movement. Given the circumstances and the patient's dementia, no further history obtainable. REVIEW OF SYSTEMS: Unobtainable given the patient's dementia. PMHx/PSHx: See Below SOCIAL HISTORY: See Below. PHYSICAL EXAM: GENERAL: Patient is in no acute distress. HEENT: No acute trauma, normocephalic atraumatic, mucous membranes moist, no nasal congestion, no scleral icterus. NECK: No stridor, no adenopathy, no meningismus, trachea is midline. LUNGS: Clear to auscultation bilaterally, no wheeze, no rhonchi, breath sounds equal. HEART: Without murmurs gallops or rubs, regular rate and rhythm. ABDOMEN: Soft, nontender, bowel sounds positive, no hernias, no peritonitis. EXTREMITIES: No cyanosis or edema, full range of motion of all the joints without pain or difficulty, no signs for acute trauma. NEUROLOGIC: Awake and alert, poor historian, no acute motor or sensory deficits, no focal weakness. SKIN: No rash, no jaundice, no diaphoresis. Rectal: The patient has a very subtle fullness in the anal region. This was easily put back with a digital exam. There were a few small hemorrhoids seen. There was no rectal bleeding. There was a vaginal fullness also noted that was easily reducible. DIFFERENTIAL DIAGNOSIS: Infection, dehydration, metabolic abnormality, hypo/hyperglycemia, rectal prolapse, hemorrhoids, polyp, cystocele, UTI, intracranial bleeding, electrolyte disturbance, anemia, hypoxia, cardiac sources, intracerebral event, toxicologic issues, stroke, TIA, as well as other pathologies. EMERGENCY DEPARTMENT COURSE/PROCEDURES: ECG: Indication was weakness. The ECG shows a normal sinus rhythm with some baseline artifact. The rate is 65. There are potential findings consistent with an old lateral infarct. No ST elevation, no PVCs. The QTc is 449. Continuous Cardiac Monitoring: An order was placed for continuous cardiac monitoring. The monitor shows a rate of 65 with normal sinus rhythm. MEDICAL DECISION MAKING: There is a mild leukocytosis which could be consistent with infection. There was no worrisome anemia. There was a normal platelet count. No significant electrolyte abnormality or kidney failure. Lactic acid level was not elevated making sepsis less likely. No concerning liver enzyme elevation. ECG showed a sinus rhythm, there was no acute ischemic change. Cardiac enzyme testing x1 is not consistent with acute cardiac injury. No evidence for pancreatitis. The patient appeared to be in a euthyroid state. Urinalysis does suggest infection with white cells and bacteria. Urine culture is pending. Covid testing returned negative. Chest film showed some congestion at the left lower lung, no pneumothorax or CHF. Brain CT showed no acute bleed or mass-effect. Chest CT did not show any pneumonia or lung mass. Abdominal and pelvis CT showed a potential proctitis, there was no bowel obstruction, no abscess. On exam, the patient did demonstrate some confusion. No focal neurologic findings. The rectal prolapse was minimal and easily reduced clinically. There was no active bleeding. The patient received IV ceftriaxone as treatment for the UTI. She received IV saline, 500 cc. The patient presents with some confusion, she has been having rectal bleeding and some rectal prolapse. She has a UTI. Her living situation is not conducive to her current issues. Her daughter is concerned that she is going to require a higher level of care. I did speak with case management, the patient does require a hospital stay. The on-call hospitalist was consulted. Patient will likely need placement in a care facility once her acute medical issues have been addressed. Past Med/Surg History Medical History Anemia Anxiety Arthralgia of multiple sites Candidal intertrigo Epigastric abdominal pain Gall bladder stones Hypercholesteremia Hypertension Insomnia Malignant melanoma of skin Memory loss Patellofemoral syndrome Pulmonary nodules Rheumatoid arthritis Shingles Surgical History History of colonoscopy History of esophagogastroduodenoscopy (EGD) History of tonsillectomy History of total abdominal hysterectomy and bilateral salpingo-oophorectomy Family History Mother Alzheimer disease Myocardial infarction Hypertension Father Hypertension CHF (congestive heart failure) Sister Gallbladder disease Hypertension Denies family history of Ovarian cancer Prostate cancer Diabetes Breast cancer Colorectal cancer Social History Smoking Status: Never smoker Second Hand Exposure: Yes; Hx Alcohol Use: No Hx Substance Use: No Preferred Language: Frisian Communication Ability: Effective Visual Impairment: No Limitations Hearing Ability: Normal Judicial Reporter Required: No Beliefs That Will Affect Care: None marital status: Current Living Situation: Alone Current Living Situation Comment: [facility] current occupational status: retired current occupation: retired from career as a medical records secretary Feels Safe at Home: Yes Childhood Exposure to Second-Hand Smoke: Yes caffeine: No during the past year weight has: remained stable Dental Care, Regularly: No Physical Activity Frequency: Daily Seatbelt Use: always Sunscreen Use: No Assistive Devices: None Allergies Allergies Allergy/AdvReac Type Severity Reaction Status Date / Time dexlansoprazole Allergy Unknown CAN'T Verified 08/12/20 19:43 [From Dexilant] REMEMBER pantoprazole AdvReac Intermediate Diarrhea Verified 08/12/20 19:43 Home Meds Home Medications Medication Instructions Recorded Confirmed folic acid 1 mg PO [id number] 06/27/18 08/12/20 methotrexate sodium 15 mg PO WK 06/27/18 08/12/20 multivitamin [Multiple Vitamins] 1 tab PO DAILY 06/27/18 08/12/20 Previous Rx's Medication Instructions Recorded pravastatin 20 mg tablet 20 mg PO DAILY #90 tab 11/27/19 bisoprolol 10 1 tab PO BID #60 tab 03/14/20 mg-hydrochlorothiazide 6.25 mg tablet hydroxychloroquine 200 mg tablet 200 mg PO DAILY #30 tab 03/28/20 prednisone 5 mg tablet 5 mg PO DAILY #90 tab 06/18/20 Results & Data (ED) Vital Signs Vital Signs - 24 hr 08/12/20 16:50 08/12/20 19:22 08/12/20 21:00 Temperature 36.7 C Temperature Source Temporal Artery Scan Pulse Rate 68 Pulse Rate [Right] 61 66 Pulse Rhythm [Right] Regular Regular Pulse Strength [Right] Normal Normal Respiratory Rate 20 18 20 Respiratory Effort / Characteristics Non-Labored Non-Labored Spontaneous Non-Labored Spontaneous Respiratory Depth Normal Normal Respiratory Pattern Regular Regular Blood Pressure 145/79 H Blood Pressure [Right Arm] 137/62 136/60 Blood Pressure Mean 101 Blood Pressure Mean [Right Arm] 87 85 Blood Pressure Position [Right Arm] Lying Lying Pulse Oximetry 92 94 94 Oxygen Delivery Method Room Air Room Air Sepsis Recent Fever Within 48 Hours No Sepsis New/Unexplained Change in Mental Status N/A Sepsis Action Taken by Nursing No Action Required 08/12/20 22:00 Temperature Temperature Source Pulse Rate Pulse Rate [Right] 61 Pulse Rhythm [Right] Regular Pulse Strength [Right] Normal Respiratory Rate 18 Respiratory Effort / Characteristics Non-Labored Spontaneous Respiratory Depth Normal Respiratory Pattern Regular Blood Pressure Blood Pressure [Right Arm] 144/58 H Blood Pressure Mean Blood Pressure Mean [Right Arm] 86 Blood Pressure Position [Right Arm] Lying Pulse Oximetry 98 Oxygen Delivery Method Room Air Sepsis Recent Fever Within 48 Hours Sepsis New/Unexplained Change in Mental Status Sepsis Action Taken by Care Home Medications Current Medication List: was personally reviewed by me Laboratory Data Attestation: I reviewed the patient's lab results. Result diagrams: 08/13/20 06:20 08/13/20 06:20 Lab Results 08/12/20 08/12/20 08/12/20 Range/Units 19:13 19:13 19:30 WBC 11.56 H (4.8-10.8) K/uL RBC 4.38 (4.2-5.4) M/uL Hgb 13.8 (12.0-16.0) g/dL Hct 41.3 (37-47) % MCV 94.3 (80-100) fL MCH 31.5 (25-34) pg MCHC 33.4 (32-36) g/dL RDW Std Deviation 49.2 H (36.4-46.3) fL RDW Coeff of Teddy 14.5 (11.5-14.5) % Plt Count 249 (130-400) K/uL MPV 10.4 (7.4-10.4) fL Immature Gran % (Auto) 0.3 % Neut % (Auto) 83.8 % Lymph % (Auto) 9.1 % [place] % (Auto) 5.4 % Eos % (Auto) 1.2 % Baso % (Auto) 0.2 % Neut # (Auto) 9.68 H (1.4-6.5) K/uL Lymph # (Auto) 1.05 L (1.2-3.4) K/uL [place] # (Auto) 0.63 H (0.11-0.59) K/uL Eos # (Auto) 0.14 (0-0.5) K/uL Baso # (Auto) 0.02 (0-0.2) K/uL Immature Gran # (Auto) 0.04 H (0.00-0.02) K/uL Sodium 138 (136-145) mmol/L Potassium 3.6 (3.5-5.1) mmol/L Chloride 103 (98-107) mmol/L Carbon Dioxide 28 (21-32) mmol/L Anion Gap 7.0 (3-11) BUN 20 H (7-18) mg/dl Creatinine 0.82 (0.6-1.2) mg/dl Est Cr Clr Drug Dosing 53.8 ml/min Est GFR ( Amer) 78.9 Est GFR (Non-Af Amer) 68.1 BUN/Creatinine Ratio 24.3 H (10-20) Glucose 116 H (70-99) mg/dl Lactate (0.4-2.0) mmol/L Calcium 9.4 (8.5-10.1) mg/dl Magnesium 2.2 (1.8-2.4) mg/dl Total Bilirubin 0.3 (0.2-1) mg/dl AST 24 (15-37) U/L ALT 23 (12-78) U/L Alkaline Phosphatase 82 (45-117) U/L Troponin I < 0.015 (0-0.045) ng/ml Total Protein 7.0 (6.4-8.2) gm/dl Albumin 3.1 L (3.4-5.0) gm/dl Globulin 3.9 (2.5-4.0) gm/dl Albumin/Globulin Ratio 0.8 L (0.9-2) Lipase 134 (73-393) U/L TSH 1.340 (0.300-4.500) uIu/ml Urine Color Dark Yellow Urine Appearance Clear (Clear) Urine pH 6.5 (4.5-7.5) Ur Specific [place] 1.021 (1.000-1.030) Urine Protein Negative (Negative) Urine Glucose (UA) Negative (Negative) Urine Ketones Negative (Negative) Urine Blood Negative (Negative) Urine Nitrite Positive A (Negative) Urine Bilirubin Negative (Negative) Urine Urobilinogen Negative (Negative) Ur Leukocyte Esterase 1+ H (Negative) Urine WBC (Auto) >30 H (0-5) /hpf Urine RBC (Auto) 0-4 (0-4) /hpf U Hyaline Cast (Auto) 1-5 (0-5) /lpf U Epithel Cells (Auto) 0-5 (0-5) /lpf Urine Bacteria (Auto) 4+ H (Negative) COVID-19 Eval Order SARS-CoV-2, RNA, NAAT (NEGATIVE) 08/12/20 08/12/20 08/12/20 Range/Units 20:54 22:04 22:04 WBC (4.8-10.8) K/uL RBC (4.2-5.4) M/uL Hgb (12.0-16.0) g/dL Hct (37-47) % MCV (80-100) fL MCH (25-34) pg MCHC (32-36) g/dL RDW Std Deviation (36.4-46.3) fL RDW Coeff of Teddy (11.5-14.5) % Plt Count (130-400) K/uL MPV (7.4-10.4) fL Immature Gran % (Auto) % Neut % (Auto) % Lymph % (Auto) % [place] % (Auto) % Eos % (Auto) % Baso % (Auto) % Neut # (Auto) (1.4-6.5) K/uL Lymph # (Auto) (1.2-3.4) K/uL [place] # (Auto) (0.11-0.59) K/uL Eos # (Auto) (0-0.5) K/uL Baso # (Auto) (0-0.2) K/uL Immature Gran # (Auto) (0.00-0.02) K/uL Sodium (136-145) mmol/L Potassium (3.5-5.1) mmol/L Chloride (98-107) mmol/L Carbon Dioxide (21-32) mmol/L Anion Gap (3-11) BUN (7-18) mg/dl Creatinine (0.6-1.2) mg/dl Est Cr Clr Drug Dosing ml/min Est GFR ( Amer) Est GFR (Non-Af Amer) BUN/Creatinine Ratio (10-20) Glucose (70-99) mg/dl Lactate 1.4 (0.4-2.0) mmol/L Calcium (8.5-10.1) mg/dl Magnesium (1.8-2.4) mg/dl Total Bilirubin (0.2-1) mg/dl AST (15-37) U/L ALT (12-78) U/L Alkaline Phosphatase (45-117) U/L Troponin I (0-0.045) ng/ml Total Protein (6.4-8.2) gm/dl Albumin (3.4-5.0) gm/dl Globulin (2.5-4.0) gm/dl Albumin/Globulin Ratio (0.9-2) Lipase (73-393) U/L TSH (0.300-4.500) uIu/ml Urine Color Urine Appearance (Clear) Urine pH (4.5-7.5) Ur Specific [place] (1.000-1.030) Urine Protein (Negative) Urine Glucose (UA) (Negative) Urine Ketones (Negative) Urine Blood (Negative) Urine Nitrite (Negative) Urine Bilirubin (Negative) Urine Urobilinogen (Negative) Ur Leukocyte Esterase (Negative) Urine WBC (Auto) (0-5) /hpf Urine RBC (Auto) (0-4) /hpf U Hyaline Cast (Auto) (0-5) /lpf U Epithel Cells (Auto) (0-5) /lpf Urine Bacteria (Auto) (Negative) COVID-19 Eval [email or web address] SARS-CoV-2, RNA, NAAT NEGATIVE (NEGATIVE) Administered Medications Bisoprolol Fumarate (Bisoprolol Fumarate 5 Mg Tab) 10 mg PO BID [facility] Stop: 09/12/20 08:59 Last Admin: 08/13/20 08:28 Dose: 10 mg Documented by: [id number] Folic Acid (Folic Acid 1 Mg Tab) 1 mg PO [id number] [facility] Stop: 09/12/20 08:59 Last Admin: 08/13/20 08:28 Dose: 1 mg Documented by: [id number] Hydrochlorothiazide (Hydrochlorothiazide 25 Mg Tab) 6.25 mg PO BID [facility] Stop: 09/12/20 08:59 Last Admin: 08/13/20 08:29 Dose: 6.25 mg Documented by: [id number] Hydroxychloroquine Sulfate (Hydroxychloroquine Sulfate 200 Mg Tab) 200 mg PO DAILY [facility] Stop: 09/12/20 08:59 Last Admin: 08/13/20 08:30 Dose: 200 mg Documented by: [id number] Ceftriaxone Sodium 1,000 mg/ (Dextrose) 50 mls @ 100 mls/hr IV Q24H [facility]; Protocol Stop: 08/18/20 08:59 Last Infusion: 08/13/20 09:02 Dose: 0 mls/hr Documented by: [id number] Admin: 08/13/20 08:32 Dose: 100 mls/hr Documented by: [id number] Lactated Ringer's (Lr) 1,000 mls @ 80 mls/hr IV .[id number] [facility] Stop: 08/14/20 01:23 Last Admin: 08/13/20 01:22 Dose: 80 mls/hr Documented by: [id number] Multivitamins (Multivitamin Tab) 1 tab PO DAILY [facility] Stop: 09/12/20 08:59 Last Admin: 08/13/20 08:29 Dose: 1 tab Documented by: [id number] Pravastatin Sodium (Pravastatin Sod 20 Mg Tab) 20 mg PO DAILY [facility] Stop: 09/12/20 08:59 Last Admin: 08/13/20 08:30 Dose: 20 mg Documented by: [id number] Prednisone (Prednisone 5 Mg Tab) 5 mg PO DAILY [facility] Stop: 09/12/20 08:59 Last Admin: 08/13/20 08:30 Dose: 5 mg Documented by: [id number] Discontinued Medications Diphenhydramine HCl (Diphenhydramine 50 Mg/Ml Vial) 12.5 mg IV NOW ONE Stop: 08/13/20 00:14 Last Admin: 08/13/20 01:01 Dose: 12.5 mg Documented by: [id number] Sodium Chloride (Nss) 500 mls @ 999 mls/hr IV .Q31M [facility] Stop: 08/12/20 19:06 Last Infusion: 08/12/20 20:01 Dose: 0 mls/hr Documented by: [id number] Admin: 08/12/20 19:17 Dose: 999 mls/hr Documented by: [id number] Ceftriaxone Sodium (Rocephin) 1,000 mg in 50 mls @ 100 mls/hr IV NOW STA Stop: 08/12/20 20:51 Last Infusion: 08/12/20 21:40 Dose: 0 mls/hr Documented by: [id number] Admin: 08/12/20 21:12 Dose: 100 mls/hr Documented by: [id number] Ioversol (Ioversol 100ml) 90 ml IV ONCE ONE Stop: 08/12/20 20:20 Last Admin: 08/12/20 20:20 Dose: 90 ml Documented by: [id number] Imaging Data Radiologist's Impression: XR chest 1V portable CLINICAL HISTORY: weakness COMPARISON STUDY: 11/14/2016 FINDINGS: The heart is borderline enlarged. There is mild elevation of the right hemidiaphragm. There is interstitial thickening with more focal interstitial/groundglass opacities within the left midlung zone laterally. An acute infectious/inflammatory process cannot be excluded. There are no significant pleural effusions. IMPRESSION: 1. Elevation/eventration right hemidiaphragm 2. Diffuse interstitial thickening with more focal interstitial/groundglass opacities within the left midlung zone laterally. An infectious/inflammatory process must be considered. CT abd pelvis IV con only CLINICAL HISTORY: RECTAL BLEEDING AND PROLAPSE COMPARISON STUDY: None. TECHNIQUE: The patient was scanned in a dynamic helical fashion during intravenous administration of 94 cc of Optiray 320 A dose lowering technique was utilized adhering to the principles of ALARA. CT DOSE: FINDINGS: Lower chest: There is lower lobe bronchiectasis and subpleural reticulation. Liver: The contrast-enhanced liver is normal in size, contour, and attenuation. There is no intrahepatic biliary ductal dilatation. The hepatic veins and portal veins are patent. Gallbladder: Surgically absent Spleen: Normal in size and attenuation. Pancreas: Unremarkable. Adrenal glands: Unremarkable. Kidneys: There is symmetric renal cortical enhancement. The kidneys are normal in size without hydronephrosis. Bowel: There are no transition zones to indicate bowel obstruction. The appendix appears normal. There is colonic diverticulosis. There is no evidence of acute diverticulitis. There is mild rectal wall thickening with mild infiltration of perirectal fat. Correlate clinically for evidence of a proctitis. There is pelvic floor relaxation. Peritoneum: There is no intraperitoneal free air or abdominal ascites. Vasculature: The abdominal aorta is normal in course and caliber. Adenopathy: None. Pelvic viscera: The uterus is surgically absent Skeletal structures: No destructive osseous lesions are seen. IMPRESSION: 1. No evidence of bowel obstruction. No evidence of free air 2. Pelvic floor relaxation 3. Rectal wall thickening with minimal infiltration of perirectal fat. Correlate clinically for evidence of rectal inflammation/proctitis 4. Diverticulosis. No evidence of acute diverticulitis. 5. Normal appendix 6. Lower lobe interstitial bony fibrotic changes with subpleural reticulation and lower lobe bronchiectasis. CT OF THE CHEST WITH IV CONTRAST CLINICAL HISTORY: Weakness. Possible pneumonia. Possible left lung mass. COMPARISON STUDY: Chest x-ray dated 08/12/2020, chest CT scan dated 11/27/2016 TECHNIQUE: Following the IV administration of mL of Optiray-320, CT of the thorax was performed from the thoracic inlet to the lung bases. Images are reviewed in the axial, sagittal, and coronal planes. IV contrast was administered without complication. A dose lowering technique was utilized adhering to the principles of ALARA. CT DOSE: FINDINGS: Thyroid: Imaged portions of the thyroid gland are normal in appearance. Thoracic aorta: There is mild ascending thoracic aortic ectasia measuring 36 mm. Pulmonary vasculature: The pulmonary trunk is normal in caliber. There are no central filling defects identified to suggest pulmonary embolus. Note that this examination was not protocoled for the evaluation of pulmonary emboli. HEART: The heart is enlarged with coronary artery calcifications. There is no significant pericardial effusion Lungs and pleural spaces: There is no pneumothorax. There are no pleural effusions. There is lower lobe bronchiectasis. There is progressive subpleural reticulation. There is no definite honeycombing. There is no acute parenchymal consolidation. There is a 5 mm right middle lobe perifissural nodule. This measured 4 mm in October 2016. This is unlikely to be of clinical significance Mediastinum: There are stable borderline enlarged mediastinal lymph nodes. Mima: There is no evidence of pathologic hilar adenopathy. Axilla: There is no evidence of pathologic axillary lymphadenopathy Upper abdomen: There is possible hepatic steatosis Skeletal structures: There are no lytic or blastic osseous lesions. IMPRESSION: 1. Slight progression in the interstitial lung disease with subpleural reticulation lower lobe bronchiectasis 2. No evidence of acute parenchymal consolidation 3. Stable borderline enlarged mediastinal lymph nodes CT head/brain wo con CLINICAL HISTORY: confusion COMPARISON STUDY: No previous studies for comparison. TECHNIQUE: Axial CT of the brain is performed from the vertex to the skull base. IV contrast was not administered for this examination. A dose lowering technique was utilized adhering to the principles of ALARA. CT DOSE: FINDINGS: No intra or extra-axial mass lesions are visualized. There is no CT evidence of acute cortical infarction. There is no evidence of midline shift. There is no ac jeannie hemorrhage. No calvarial fractures are visualized. There are patchy white matter hypodensities likely on a small vessel basis. There is no evidence of pathologic ventricular dilatation. There is no evidence of acute sinusitis IMPRESSION: No acute intracranial findings Discharge Plan Visit Data Chief Complaint: Rectal Bleed Stated Complaint: RECTAL PROLAPSE, BLEEDING ED Provider: Christopher Medeiros Discharge Problem: Acute confusion, Rectal prolapse, Rectal bleeding, Acute UTI Patient Disposition: Admitted As Inpatient Condition: Fair Discharge Instructions Interventions: ED Discharge Assessment Last Done: 08/12/20 23:21
--- NOTE | 2020-08-12 19:05 | XRay Report ---
XR chest 1V portable CLINICAL HISTORY: weakness COMPARISON STUDY: 11/14/2016 FINDINGS: The heart is borderline enlarged. There is mild elevation of the right hemidiaphragm. There is interstitial thickening with more focal interstitial/groundglass opacities within the left midlun g zone laterally. An acute infectious/inflammatory process cannot be excluded. There are no significa nt pleural effusions. IMPRESSION: 1. Elevation/eventration right hemidiaphragm 2. Diffuse interstitial thickening with more focal interstitial/groundglass opacities within the left midlung zone laterally. An infectious/inflammatory process must be considered. ACT 112: Negative or not required by law. Electronically signed by: Milton Jung M.D. 08/12/2020 7:03 PM
[2020-08-12 19:34] LABS: Basophils # (auto) 0.02 K/uL (0-0.2); Basophils % (auto) 0.2 %; Eosinophils # (auto) 0.14 K/uL (0-0.5); Eosinophils % (auto) 1.2 %; Hematocrit (blood only) 41.3 % (37-47); Hemoglobin 13.8 g/dL (12.0-16.0); Immature Granulocytes # (auto) 0.04 K/uL (0.00-0.02); Immature Granulocytes % (auto) 0.3 %; Lymphocytes # (auto) 1.05 K/uL (1.2-3.4); Lymphocytes % (auto) 9.1 %; Mean Corpuscular Hemoglobin 31.5 pg (25-34); Mean Corpuscular Hgb Conc 33.4 g/dL (32-36); Mean Corpuscular Volume 94.3 fL (80-100); Mean Platelet Volume 10.4 fL (7.4-10.4); Monocytes # (auto) 0.63 K/uL (0.11-0.59); Monocytes % (auto) 5.4 %; Neutrophils # (auto) 9.68 K/uL (1.4-6.5); Neutrophils % (auto) 83.8 %; Platelet Count 249 K/uL (130-400); RDW Coefficient of Variation 14.5 % (11.5-14.5); RDW Standard Deviation 49.2 fL (36.4-46.3); Red Blood Count 4.38 M/uL (4.2-5.4); White Blood Count 11.56 K/uL (4.8-10.8)
[2020-08-12 19:50] LABS: Alanine Aminotransferase 23 U/L (12-78); Albumin Level 3.1 gm/dl (3.4-5.0); Aspartate Aminotransferase 24 U/L (15-37); BUN Creatinine Ratio 24.3 (10-20); Blood Urea Nitrogen 20 mg/dl (7-18); Calcium 9.4 mg/dl (8.5-10.1); Carbon Dioxide 28 mmol/L (21-32); Chloride 103 mmol/L (98-107); Creatinine Clr Calc Pharmacy 53.8 ml/min; Est GFR (African American) 78.9; Est GFR (Non-African American) 68.1; Glucose 116 mg/dl (70-99); Lipase 134 U/L (73-393); Magnesium 2.2 mg/dl (1.8-2.4); Potassium 3.6 mmol/L (3.5-5.1); Sodium 138 mmol/L (136-145)
[2020-08-12 20:01] LABS: Albumin Globulin Ratio 0.8 (0.9-2); Alkaline Phosphatase 82 U/L (45-117); Bilirubin,Total 0.3 mg/dl (0.2-1); Globulin 3.9 gm/dl (2.5-4.0); Troponin I < 0.015 ng/ml (0-0.045)
[2020-08-12 20:07] LABS: Appearance Urine Clear (Clear); Bacteria Urine Automated 4+ (Negative); Bilirubin Urine Negative (Negative); Blood Urine Negative (Negative); Color Urine Dark Yellow; Epithelial Cell Urine Auto 0-5 /lpf (0-5); Glucose Urine UA Negative (Negative); Ketones Urine Negative (Negative); Leukocyte Esterase Urine 1+ (Negative); Nitrite Urine Positive (Negative); Protein Urine Negative (Negative); RBC Urine Automated 0-4 /hpf (0-4); Specific Gravity Urine 1.021 (1.000-1.030); Urobilinogen Urine Negative (Negative); WBC Urine Automated >30 /hpf (0-5); pH Urine 6.5 (4.5-7.5)
[2020-08-12] MEDS ORDERED: OPTIRAY 320 100ml IV ONE (20:19)
[2020-08-12] MEDS ORDERED: cefTRIAXone SODIUM 1,000 MG/50 ML BAG IV STA (20:22)
--- NOTE | 2020-08-12 20:26 | CT Scan Report ---
CT head/brain wo con CLINICAL HISTORY: confusion COMPARISON STUDY: No previous studies for comparison. TECHNIQUE: Axial CT of the brain is performed from the vertex to the skull base. IV contrast was not administered for this examination. A dose lowering technique was utilized adhering to the principles of ALARA. CT DOSE: FINDINGS: No intra or extra-axial mass lesions are visualized. There is no CT evidence of acute cortical infarc tion. There is no evidence of midline shift. There is no acute hemorrhage. No calvarial fractures ar e visualized. There are patchy white matter hypodensities likely on a small vessel basis. There is no evidence of pathologic ventricular dilatation. There is no evidence of acute sinusitis IMPRESSION: No acute intracranial findings ACT 112: Negative or not required by law. Electronically signed by: Milton Jung M.D. 08/12/2020 8:25 PM
--- NOTE | 2020-08-12 20:27 | CT Scan Report ---
CT OF THE CHEST WITH IV CONTRAST CLINICAL HISTORY: Weakness. Possible pneumonia. Possible left lung mass. COMPARISON STUDY: Chest x-ray dated 08/12/2020, chest CT scan dated 11/27/2016 TECHNIQUE: Following the IV administration of mL of Optiray-320, CT of the thorax was performed from the thoracic inlet to the lung bases. Images are reviewed in the axial, sagittal, and coronal planes . IV contrast was administered without complication. A dose lowering technique was utilized adhering to the principles of ALARA. CT DOSE: FINDINGS: Thyroid: Imaged portions of the thyroid gland are normal in appearance. Thoracic aorta: There is mild ascending thoracic aortic ectasia measuring 36 mm. Pulmonary vasculature: The pulmonary trunk is normal in caliber. There are no central filling defects identified to suggest pulmonary embolus. Note that this examination was not protocoled for the evalu ation of pulmonary emboli. HEART: The heart is enlarged with coronary artery calcifications. There is no significant pericardial effusion Lungs and pleural spaces: There is no pneumothorax. There are no pleural effusions. There is lower lo be bronchiectasis. There is progressive subpleural reticulation. There is no definite honeycombing. T here is no acute parenchymal consolidation. There is a 5 mm right middle lobe perifissural nodule. Th is measured 4 mm in October 2016. This is unlikely to be of clinical significance Mediastinum: There are stable borderline enlarged mediastinal lymph nodes. Mima: There is no evidence of pathologic hilar adenopathy. Axilla: There is no evidence of pathologic axillary lymphadenopathy Upper abdomen: There is possible hepatic steatosis Skeletal structures: There are no lytic or blastic osseous lesions. IMPRESSION: 1. Slight progression in the interstitial lung disease with subpleural reticulation lower lobe bronch iectasis 2. No evidence of acute parenchymal consolidation 3. Stable borderline enlarged mediastinal lymph nodes ACT 112: Negative or not required by law. Electronically signed by: Milton Jung M.D. 08/12/2020 8:26 PM
--- NOTE | 2020-08-12 20:36 | CT Scan Report ---
CT abd pelvis IV con only CLINICAL HISTORY: RECTAL BLEEDING AND PROLAPSE COMPARISON STUDY: None. TECHNIQUE: The patient was scanned in a dynamic helical fashion during intravenous administration of 94 cc of Optiray 320 A dose lowering technique was utilized adhering to the principles of ALARA. CT DOSE: FINDINGS: Lower chest: There is lower lobe bronchiectasis and subpleural reticulation. Liver: The contrast-enhanced liver is normal in size, contour, and attenuation. There is no intrahepa tic biliary ductal dilatation. The hepatic veins and portal veins are patent. Gallbladder: Surgically absent Spleen: Normal in size and attenuation. Pancreas: Unremarkable. Adrenal glands: Unremarkable. Kidneys: There is symmetric renal cortical enhancement. The kidneys are normal in size without hydron ephrosis. Bowel: There are no transition zones to indicate bowel obstruction. The appendix appears normal. Ther e is colonic diverticulosis. There is no evidence of acute diverticulitis. There is mild rectal wall thickening with mild infiltration of perirectal fat. Correlate clinically for evidence of a proctitis . There is pelvic floor relaxation. Peritoneum: There is no intraperitoneal free air or abdominal ascites. Vasculature: The abdominal aorta is normal in course and caliber. Adenopathy: None. Pelvic viscera: The uterus is surgically absent Skeletal structures: No destructive osseous lesions are seen. IMPRESSION: 1. No evidence of bowel obstruction. No evidence of free air 2. Pelvic floor relaxation 3. Rectal wall thickening with minimal infiltration of perirectal fat. Correlate clinically for evide nce of rectal inflammation/proctitis 4. Diverticulosis. No evidence of acute diverticulitis. 5. Normal appendix 6. Lower lobe interstitial bony fibrotic changes with subpleural reticulation and lower lobe bronchie ctasis. ACT 112: Negative or not required by law. Electronically signed by: Milton Jung M.D. 08/12/2020 8:34 PM
--- NOTE | 2020-08-12 22:08 | History & Physical Report ---
Date of Service August 12, 2020 Assessment & Plan (1) Rectal prolapse: Reduced in ER. Patient denies pain -Continue to monitor Present on Admission?: Yes (2) Hypercholesteremia: Chronic. Stable -Continue Pravastatin Present on Admission?: Yes (3) Memory loss: Daughter reports progressive decline over the last 2 years with more rapid decline over the last 2-3 months. Mini-cognitive test performed by PCP with score of 3 -Consider Aricept/Namenda PT/OT evaluation for possible placement needs appreciated Present on Admission?: Yes (4) Rheumatoid arthritis: Chronic. Stable -Continue Plaquenil -Continue MTX and Folic Acid -Continue Prednisone Present on Admission?: Yes (5) Hypertension: Chronic. Slightly elevated -Continue Bisoprolol/HCTZ -Continue to monitor F/E/N - LR at 80mL/hr x 2 liters, electrolytes WNL, Heart healthy diet as tolerated Code - Full Present on Admission?: Yes History of Present Illness Chief Complaint: rectal prolapse Primary Care Provider: Bin Mckinnon MD Uma Garcia is a 80yo female with history of HTN, HLP, RA and Dementia presenting with rectal prolapse and overall failure to thrive. She presents with her daughter. Daughter reports patient has been more confused lately and has been having more difficulty caring for herself. She lives alone in a senior community. Yesterday she called her daughter with concern for "something coming out of her butt". She was seen in the ER and found to have a rectal prolapse which was easily reduced. She had similar occurrence this evening which prompted a return to the ER. Daughter states that she is slightly more confused than usual. She reports a cognitive decline over the last 2 years with a more rapid decline over the last 2-3 months. She is concerned for her mother's well-being and would like to explore placement options. Allergies Allergy/AdvReac Type Severity Reaction Status Date / Time dexlansoprazole Allergy Unknown CAN'T Verified 08/12/20 19:43 [From Dexilant] REMEMBER pantoprazole AdvReac Intermediate Diarrhea Verified 08/12/20 19:43 Home Medications Medication Instructions Recorded Confirmed Type folic acid 1 mg PO [id number] 06/27/18 08/12/20 History methotrexate sodium 15 mg PO WK 06/27/18 08/12/20 History multivitamin [Multiple Vitamins] 1 tab PO DAILY 06/27/18 08/12/20 History pravastatin 20 mg tablet 20 mg PO DAILY #90 tab 11/27/19 08/12/20 Rx bisoprolol 10 1 tab PO BID #60 tab 03/14/20 08/12/20 Rx mg-hydrochlorothiazide 6.25 mg tablet hydroxychloroquine 200 mg tablet 200 mg PO DAILY #30 tab 03/28/20 08/12/20 Rx prednisone 5 mg tablet 5 mg PO DAILY #90 tab 06/18/20 08/12/20 Rx Past Med/Surg History Medical History Anemia Anxiety Arthralgia of multiple sites Candidal intertrigo Epigastric abdominal pain Gall bladder stones Hypercholesteremia Hypertension Insomnia Malignant melanoma of skin Memory loss Patellofemoral syndrome Pulmonary nodules Rheumatoid arthritis Shingles Surgical History History of colonoscopy History of esophagogastroduodenoscopy (EGD) History of tonsillectomy History of total abdominal hysterectomy and bilateral salpingo-oophorectomy Family History Mother Alzheimer disease Myocardial infarction Hypertension Father Hypertension CHF (congestive heart failure) Sister Gallbladder disease Hypertension Denies family history of Ovarian cancer Prostate cancer Diabetes Breast cancer Colorectal cancer Social History Smoking Status: Never smoker Second Hand Exposure: No; Hx Alcohol Use: No Hx Substance Use: No Preferred Language: Kinyarwanda Communication Ability: Effective Visual Impairment: No Limitations Hearing Ability: Normal Disbursement Clerk Required: No Beliefs That Will Affect Care: None marital status: Current Living Situation: Alone Current Living Situation Comment: [facility] current occupational status: retired current occupation: retired from career as a attendance secretary Feels Safe at Home: Yes Childhood Exposure to Second-Hand Smoke: Yes caffeine: No during the past year weight has: remained stable Dental Care, Regularly: No Physical Activity Frequency: Daily Seatbelt Use: always Sunscreen Use: No Review of Systems Review of Systems: All systems reviewed & are unremarkable except as noted in HPI & below Physical Exam Physical Exam: General: patient resting comfortably, NAD, non-toxic in appearance, AA&O to self and hospital Skin: warm, dry, intact, no rashes or lesions HEENT: NC/AT, PERRL, EOMI, anicteric sclera, conjunctiva without injection, external ear normal to inspection and nontender, nares patent, moist mucus membranes, dentition intact, no oropharyngeal lesions, neck supple, trachea midline, no LAD, no thyromegaly, no JVD Heart: +S1/S2, regular, no m/r/g Lungs: equal air entry bilaterally, no rales/rhonchi/wheezes Abd: +BS, soft, NT/ND, no masses/organomegaly/ascites Ext: warm, 2+ pulses in UE/LE bilaterally, no clubbing/cyanosis or edema Neuro: nonfocal, patient AA&O x 2, speech intact, no facial droop, moving all extremities on command with equal strength 5/5 Results & Data Results & Data ([facility]) Vital Signs (Past 12 Hours) Vital Signs Temp Pulse Pulse Resp BP BP Pulse Ox 08/12/20 21:00 66 20 136/60 94 08/12/20 19:22 61 18 137/62 94 08/12/20 16:50 36.7 C 68 20 145/79 H 92 Laboratory Results Lab Results 08/12/20 08/12/20 08/12/20 Range/Units 19:13 19:13 19:30 WBC 11.56 H (4.8-10.8) K/uL RBC 4.38 (4.2-5.4) M/uL Hgb 13.8 (12.0-16.0) g/dL Hct 41.3 (37-47) % MCV 94.3 (80-100) fL MCH 31.5 (25-34) pg MCHC 33.4 (32-36) g/dL RDW Std Deviation 49.2 H (36.4-46.3) fL RDW Coeff of Teddy 14.5 (11.5-14.5) % Plt Count 249 (130-400) K/uL MPV 10.4 (7.4-10.4) fL Immature Gran % (Auto) 0.3 % Neut % (Auto) 83.8 % Lymph % (Auto) 9.1 % [place] % (Auto) 5.4 % Eos % (Auto) 1.2 % Baso % (Auto) 0.2 % Neut # (Auto) 9.68 H (1.4-6.5) K/uL Lymph # (Auto) 1.05 L (1.2-3.4) K/uL [place] # (Auto) 0.63 H (0.11-0.59) K/uL Eos # (Auto) 0.14 (0-0.5) K/uL Baso # (Auto) 0.02 (0-0.2) K/uL Immature Gran # (Auto) 0.04 H (0.00-0.02) K/uL Sodium 138 (136-145) mmol/L Potassium 3.6 (3.5-5.1) mmol/L Chloride 103 (98-107) mmol/L Carbon Dioxide 28 (21-32) mmol/L Anion Gap 7.0 (3-11) BUN 20 H (7-18) mg/dl Creatinine 0.82 (0.6-1.2) mg/dl Est Cr Clr Drug Dosing 53.8 ml/min Est GFR ( Amer) 78.9 Est GFR (Non-Af Amer) 68.1 BUN/Creatinine Ratio 24.3 H (10-20) Glucose 116 H (70-99) mg/dl Lactate (0.4-2.0) mmol/L Calcium 9.4 (8.5-10.1) mg/dl Magnesium 2.2 (1.8-2.4) mg/dl Total Bilirubin 0.3 (0.2-1) mg/dl AST 24 (15-37) U/L ALT 23 (12-78) U/L Alkaline Phosphatase 82 (45-117) U/L Troponin I < 0.015 (0-0.045) ng/ml Total Protein 7.0 (6.4-8.2) gm/dl Albumin 3.1 L (3.4-5.0) gm/dl Globulin 3.9 (2.5-4.0) gm/dl Albumin/Globulin Ratio 0.8 L (0.9-2) Lipase 134 (73-393) U/L TSH 1.340 (0.300-4.500) uIu/ml Urine Color Dark Yellow Urine Appearance Clear (Clear) Urine pH 6.5 (4.5-7.5) Ur Specific Morton 1.021 (1.000-1.030) Urine Protein Negative (Negative) Urine Glucose (UA) Negative (Negative) Urine Ketones Negative (Negative) Urine Blood Negative (Negative) Urine Nitrite Positive A (Negative) Urine Bilirubin Negative (Negative) Urine Urobilinogen Negative (Negative) Ur Leukocyte Esterase 1+ H (Negative) Urine WBC (Auto) >30 H (0-5) /hpf Urine RBC (Auto) 0-4 (0-4) /hpf U Hyaline Cast (Auto) 1-5 (0-5) /lpf U Epithel Cells (Auto) 0-5 (0-5) /lpf Urine Bacteria (Auto) 4+ H (Negative) COVID-19 Eval Order SARS-CoV-2, RNA, NAAT (NEGATIVE) 08/12/20 08/12/20 08/12/20 Range/Units 20:54 22:04 22:04 WBC (4.8-10.8) K/uL RBC (4.2-5.4) M/uL Hgb (12.0-16.0) g/dL Hct (37-47) % MCV (80-100) fL MCH (25-34) pg MCHC (32-36) g/dL RDW Std Deviation (36.4-46.3) fL RDW Coeff of Teddy (11.5-14.5) % Plt Count (130-400) K/uL MPV (7.4-10.4) fL Immature Gran % (Auto) % Neut % (Auto) % Lymph % (Auto) % [place] % (Auto) % Eos % (Auto) % Baso % (Auto) % Neut # (Auto) (1.4-6.5) K/uL Lymph # (Auto) (1.2-3.4) K/uL [place] # (Auto) (0.11-0.59) K/uL Eos # (Auto) (0-0.5) K/uL Baso # (Auto) (0-0.2) K/uL Immature Gran # (Auto) (0.00-0.02) K/uL Sodium (136-145) mmol/L Potassium (3.5-5.1) mmol/L Chloride (98-107) mmol/L Carbon Dioxide (21-32) mmol/L Anion Gap (3-11) BUN (7-18) mg/dl Creatinine (0.6-1.2) mg/dl Est Cr Clr Drug Dosing ml/min Est GFR ( Amer) Est GFR (Non-Af Amer) BUN/Creatinine Ratio (10-20) Glucose (70-99) mg/dl Lactate 1.4 (0.4-2.0) mmol/L Calcium (8.5-10.1) mg/dl Magnesium (1.8-2.4) mg/dl Total Bilirubin (0.2-1) mg/dl AST (15-37) U/L ALT (12-78) U/L Alkaline Phosphatase (45-117) U/L Troponin I (0-0.045) ng/ml Total Protein (6.4-8.2) gm/dl Albumin (3.4-5.0) gm/dl Globulin (2.5-4.0) gm/dl Albumin/Globulin Ratio (0.9-2) Lipase (73-393) U/L TSH (0.300-4.500) uIu/ml Urine Color Urine Appearance (Clear) Urine pH (4.5-7.5) Ur Specific Morton (1.000-1.030) Urine Protein (Negative) Urine Glucose (UA) (Negative) Urine Ketones (Negative) Urine Blood (Negative) Urine Nitrite (Negative) Urine Bilirubin (Negative) Urine Urobilinogen (Negative) Ur Leukocyte Esterase (Negative) Urine WBC (Auto) (0-5) /hpf Urine RBC (Auto) (0-4) /hpf U Hyaline Cast (Auto) (0-5) /lpf U Epithel Cells (Auto) (0-5) /lpf Urine Bacteria (Auto) (Negative) COVID-19 Eval Order Covid19 IDNow [facility] SARS-CoV-2, RNA, NAAT NEGATIVE (NEGATIVE) PG Care Time/CCT Total # of Minutes Spent Total Time Spent with Patient: Total time spent is greater than 50% in coordination of care (as documented) at patient's floor/unit and/or counseling patient: Coding Level of Care Code 90420 Initial Inpt Care Lvl 3 Diagnoses Rectal prolapse K62.3 Hypercholesteremia E78.00 Memory loss R41.3 Rheumatoid arthritis M06.9 Rheumatoid arthritis location: unspecified site Rheumatoid factor presence: unspecified presence Hypertension I10 Hypertension type: essential hypertension (1) Rheumatoid arthritis Rheumatoid arthritis location: unspecified site Rheumatoid factor presence: unspecified presence Qualified Code(s): M06.9 - Rheumatoid arthritis, unspecified (2) Hypertension Hypertension type: essential hypertension Qualified Code(s): I10 - Essential (primary) hypertension
[2020-08-13] MEDS ORDERED: diphenhydrAMINE 50 MG/ML VIAL IV ONE (00:13)
[2020-08-13] MEDS ORDERED: DOCUSATE SODIUM 100 MG CAP PO PRN (00:24)
[2020-08-13] MEDS ORDERED: ACETAMINOPHEN 325 MG TAB PO PRN (00:24)
[2020-08-13] MEDS: LACTATED RINGER'S 1,000 ML IV SCH ×2 (01:22→13:46)
[2020-08-13 06:54] LABS: Basophils # (auto) 0.02 K/uL (0-0.2); Basophils % (auto) 0.3 %; Eosinophils # (auto) 0.24 K/uL (0-0.5); Eosinophils % (auto) 3.3 %; Hematocrit (blood only) 37.2 % (37-47); Hemoglobin 12.5 g/dL (12.0-16.0); Immature Granulocytes # (auto) 0.03 K/uL (0.00-0.02); Immature Granulocytes % (auto) 0.4 %; Lymphocytes # (auto) 1.87 K/uL (1.2-3.4); Lymphocytes % (auto) 25.6 %; Mean Corpuscular Hemoglobin 31.2 pg (25-34); Mean Corpuscular Hgb Conc 33.6 g/dL (32-36); Mean Corpuscular Volume 92.8 fL (80-100); Mean Platelet Volume 10.1 fL (7.4-10.4); Monocytes # (auto) 0.53 K/uL (0.11-0.59); Monocytes % (auto) 7.3 %; Neutrophils # (auto) 4.62 K/uL (1.4-6.5); Neutrophils % (auto) 63.1 %; Platelet Count 244 K/uL (130-400); RDW Coefficient of Variation 14.4 % (11.5-14.5); Red Blood Count 4.01 M/uL (4.2-5.4); White Blood Count 7.31 K/uL (4.8-10.8)
[2020-08-13 07:33] LABS: Calcium 8.3 mg/dl (8.5-10.1); Creatinine Clr Calc Pharmacy 79.6 ml/min; Est GFR (African American) 103.4; Est GFR (Non-African American) 89.2; Potassium 3.3 mmol/L (3.5-5.1)
[2020-08-13] MEDS: BISOPROLOL FUMARATE 5 MG TAB PO SCH ×2 (08:28→20:16)
[2020-08-13] MEDS: FOLIC ACID 1 MG TAB PO SCH (08:28)
[2020-08-13] MEDS: MULTIVITAMIN TAB PO SCH (08:29)
[2020-08-13] MEDS: hydroCHLOROthiazide 25 MG TAB PO SCH ×2 (08:29→20:17)
[2020-08-13] MEDS: HYDROXYCHLOROQUINE SULFATE 200 MG TAB PO SCH (08:30)
[2020-08-13] MEDS: predniSONE 5 MG TAB PO SCH (08:30)
[2020-08-13] MEDS: PRAVASTATIN SOD 20 MG TAB PO SCH (08:30)
[2020-08-13] MEDS: cefTRIAXone SODIUM 1,000 MG in DEXTROSE 5% 50 ML IV SCH (08:32)
--- NOTE | 2020-08-13 13:34 | Hospitalist Progress Note ---
Date of Service August 13, 2020 Assessment & Plan (1) Memory loss: Daughter reports progressive decline over the last 2 years with more rapid decline over the last 2-3 months. Mini-cognitive test performed by PCP with score of 3. - PT/OT evaluation for possible placement (2) Rectal prolapse: Rectal prolapse with rectal bleeding, though the bleeding has already resolved. Reduced in ER, but still returning with trying to have a BM. Patient denies pain. - General surgery consulted (3) Hypertension: Chronic. Slightly elevated today at 160/70. - Continue bisoprolol/HCTZ - Continue to monitor (4) Hypercholesteremia: Chronic. Stable. - Continue pravastatin (5) Rheumatoid arthritis: Chronic. Stable. On exam today, no flare in any joints. - Continue Plaquenil - Continue MTX and Folic Acid - Continue home prednisone (6) DVT prophylaxis: Admission and Anticipated Discharge Date Admission Date: August 12, 2020 Subjective Doing well overall. Feels stronger today. Still with rectal prolapse though. Reports no fevers/chills, chest pain, shortness of breath, abdominal pain, nausea, or vomiting. Physical Exam Constitutional: WD/WN, vitals as above Eyes: EOM intact bilaterally; no conjunctival abnormality ENMT: external ear and nose normal, oropharynx normal Neck: trachea midline, no thyromegaly normal visual inspection Respiratory: normal respiratory effort, lungs clear to auscultation no respiratory distress Cardiovascular: RRR, no murmur, no edema Gastrointestinal (Abdomen): Inspection/Auscultation: abdomen normal to inspection; abdomen not distended Musculoskeletal: no cyanosis or clubbing, extremities motor strength 5/5 Skin: no rashes, warm and dry Neurologic: moves all extremities and awake Psychiatric: Orientation: alert, oriented to person and cooperative Results & Data Results & Data ([facility]) Vital Signs (Past 12 Hours) Vital Signs Temp Pulse Resp BP Pulse Ox 08/13/20 07:07 36.8 C 57 L 16 161/72 H 93 PG Care Time/CCT Total # of Minutes Spent Total Time Spent with Patient: Total time spent is greater than 50% in coordination of care (as documented) at patient's floor/unit and/or counseling patient: Coding Level of Care Code 82340 Subseq Hosp Care Lvl 2 Diagnoses Memory loss R41.3 Rectal prolapse K62.3 Hypertension I10 Hypertension type: essential hypertension Hypercholesteremia E78.00 Rheumatoid arthritis M06.9 Rheumatoid arthritis location: unspecified site Rheumatoid factor presence: unspecified presence DVT prophylaxis Z29.9 (1) Rheumatoid arthritis Rheumatoid arthritis location: unspecified site Rheumatoid factor presence: unspecified presence Qualified Code(s): M06.9 - Rheumatoid arthritis, unspecified (2) Hypertension Hypertension type: essential hypertension Qualified Code(s): I10 - Essential (primary) hypertension
[2020-08-13] MEDS ORDERED: POTASSIUM CHLORIDE CRTAB 20 MEQ TABCR PO STA (13:42)
[2020-08-13] MEDS: PSYLLIUM 58.6% POWDER PACKET PO SCH (20:15)
[2020-08-13] MEDS: DOCUSATE SODIUM 100 MG CAP PO SCH (20:16)
--- NOTE | 2020-08-14 05:32 | Electrocardiogram Report ---
Test Reason : Blood Pressure : / mmHG Vent. Rate : 065 BPM Atrial Rate : 065 BPM P-R Int : 204 ms QRS Dur : 092 ms QT Int : 432 ms P-R-T Axes : 041 -27 038 degrees QTc Int : 449 ms Normal sinus rhythm Poor R wave progression, consider anterior OK vs. lead placement vs. LVH Abnormal ECG When compared with ECG of 14-NOV-2016 15:07, Questionable change in initial forces of Anterolateral leads Confirmed by Max Salazar ([id number]) on 08/14/2020 5:32:15 AM Referred By: REFERRED SELF Confirmed By:Max Salazar
[2020-08-14 06:24] LABS: Hematocrit (blood only) 38.1 % (37-47); Hemoglobin 12.5 g/dL (12.0-16.0); Mean Corpuscular Hemoglobin 30.8 pg (25-34); Mean Corpuscular Hgb Conc 32.8 g/dL (32-36); Mean Corpuscular Volume 93.8 fL (80-100); Mean Platelet Volume 10.1 fL (7.4-10.4); Platelet Count 229 K/uL (130-400); RDW Coefficient of Variation 14.6 % (11.5-14.5); RDW Standard Deviation 49.6 fL (36.4-46.3); Red Blood Count 4.06 M/uL (4.2-5.4); White Blood Count 7.44 K/uL (4.8-10.8)
[2020-08-14 07:06] LABS: BUN Creatinine Ratio 21.6 (10-20); Calcium 8.5 mg/dl (8.5-10.1); Est GFR (African American) 100.5; Est GFR (Non-African American) 86.7; Potassium 3.8 mmol/L (3.5-5.1)
[2020-08-14] MEDS: FOLIC ACID 1 MG TAB PO SCH (07:54)
[2020-08-14] MEDS: PRAVASTATIN SOD 20 MG TAB PO SCH (07:54)
[2020-08-14] MEDS: hydroCHLOROthiazide 25 MG TAB PO SCH ×2 (07:54→20:28)
[2020-08-14] MEDS: HYDROXYCHLOROQUINE SULFATE 200 MG TAB PO SCH (07:54)
[2020-08-14] MEDS: MULTIVITAMIN TAB PO SCH (07:54)
[2020-08-14] MEDS: predniSONE 5 MG TAB PO SCH (07:54)
[2020-08-14] MEDS: BISOPROLOL FUMARATE 5 MG TAB PO SCH ×2 (07:55→20:28)
[2020-08-14] MEDS: PSYLLIUM 58.6% POWDER PACKET PO SCH (07:56)
[2020-08-14] MEDS: cefTRIAXone SODIUM 1,000 MG in DEXTROSE 5% 50 ML IV SCH (07:56)
[2020-08-14] MEDS: DOCUSATE SODIUM 100 MG CAP PO SCH (07:56)
--- NOTE | 2020-08-14 16:57 | Hospitalist Progress Note ---
Date of Service August 14, 2020 Assessment & Plan (1) Memory loss: Daughter reports progressive decline over the last 2 years with more rapid decline over the last 2-3 months. Mini-cognitive test performed by PCP with score of 3. - PT/OT evaluation for possible placement - Working on placement today. No change in memory issues. (2) Rectal prolapse: Rectal prolapse with rectal bleeding, though the bleeding has already resolved. Reduced in ER, but still returning with trying to have a BM. Patient denies pain. - Discussed with general surgery who report colorectal surgery required. - No acute concerns today. Had a BM today. No indication of ischemia. Will need outpatient follow up. (3) Hypertension: Chronic. Slightly elevated today at 140/65. - Continue bisoprolol/HCTZ - Continue to monitor (4) Hypercholesteremia: Chronic. Stable. - Continue pravastatin (5) Rheumatoid arthritis: Chronic. Stable. On exam today, no flare in any joints. - Continue Plaquenil - Continue MTX and Folic Acid - Continue home prednisone (6) DVT prophylaxis: SCDs - Low DVT risk per admission calculator. Early ambulation and discharge. Admission and Anticipated Discharge Date Admission Date: August 12, 2020 Subjective Doing well today. Will think about rehab. Reports no fevers/chills, chest pain, shortness of breath, abdominal pain, nausea, or vomiting. Physical Exam Constitutional: WD/WN, vitals as above Eyes: EOM intact bilaterally; no conjunctival abnormality ENMT: external ear and nose normal, oropharynx normal Neck: trachea midline, no thyromegaly normal visual inspection Respiratory: normal respiratory effort, lungs clear to auscultation no respiratory distress Cardiovascular: RRR, no murmur, no edema Gastrointestinal (Abdomen): Inspection/Auscultation: abdomen normal to inspection; abdomen not distended Musculoskeletal: no cyanosis or clubbing, extremities motor strength 5/5 Skin: no rashes, warm and dry Neurologic: moves all extremities and awake Psychiatric: Orientation: alert, oriented to person and cooperative Results & Data Results & Data ([facility]) Vital Signs (Past 12 Hours) Vital Signs Temp Pulse Resp BP Pulse Ox 08/14/20 15:25 36.9 C 60 18 137/64 93 08/14/20 07:28 36.8 C 57 L 16 151/71 H 94 PG Care Time/CCT Total # of Minutes Spent Total Time Spent with Patient: Total time spent is greater than 50% in coordination of care (as documented) at patient's floor/unit and/or counseling patient: Coding Level of Care Code 37521 Subseq Hosp Care Lvl 2 Diagnoses Memory loss R41.3 Rectal prolapse K62.3 Hypertension I10 Hypertension type: essential hypertension Hypercholesteremia E78.00 Rheumatoid arthritis M06.9 Rheumatoid arthritis location: unspecified site Rheumatoid factor presence: unspecified presence DVT prophylaxis Z29.9 (1) Hypertension Hypertension type: essential hypertension Qualified Code(s): I10 - Essential (primary) hypertension (2) Rheumatoid arthritis Rheumatoid arthritis location: unspecified site Rheumatoid factor presence: unspecified presence Qualified Code(s): M06.9 - Rheumatoid arthritis, unspecif ied
[2020-08-15] MEDS: MULTIVITAMIN TAB PO SCH (07:32)
[2020-08-15] MEDS: PRAVASTATIN SOD 20 MG TAB PO SCH (07:32)
[2020-08-15] MEDS: PSYLLIUM 58.6% POWDER PACKET PO SCH (07:32)
[2020-08-15] MEDS: HYDROXYCHLOROQUINE SULFATE 200 MG TAB PO SCH (07:32)
[2020-08-15] MEDS: DOCUSATE SODIUM 100 MG CAP PO SCH (07:32)
[2020-08-15] MEDS: predniSONE 5 MG TAB PO SCH (07:32)
[2020-08-15] MEDS: FOLIC ACID 1 MG TAB PO SCH (07:32)
[2020-08-15] MEDS: hydroCHLOROthiazide 25 MG TAB PO SCH ×2 (07:33→19:45)
[2020-08-15] MEDS: BISOPROLOL FUMARATE 5 MG TAB PO SCH ×2 (07:33→19:45)
[2020-08-15] MEDS: CEFDINIR 300 MG CAP PO SCH ×2 (12:05→19:46)
--- NOTE | 2020-08-15 14:35 | Hospitalist Progress Note ---
Date of Service August 15, 2020 Assessment & Plan (1) Memory loss: Daughter reports progressive decline over the last 2 years with more rapid decline over the last 2-3 months. Mini-cognitive test performed by PCP with score of 3. - PT/OT evaluation for possible placement - Working on placement to [facility] tomorrow. No change in memory issues. (2) Rectal prolapse: Rectal prolapse with rectal bleeding, though the bleeding has already resolved. Reduced in ER, but still returning with trying to have a BM. Patient denies pain. - Discussed with general surgery who report colorectal surgery required. - Overnight of 08/14-08/15, she had tenesmus sensation and they let her sit on the bed barcenas several times which resulted in prolapse and mild bleeding. On my exam today (08/15), it is fully reduced. No indication of ischemia. Will need outpatient follow up with colorectal sx. - Continue Metamucil and docusate to avoid constipation and straining. (3) Acute UTI: Possible diagnosis. Minimal symptoms with a slightly elevated WBC. - Received two doses of ceftriaxone, then pulled IV. - Finish 3 more days of treatment with Omnicef (End date: 08/18/2020) (4) Hypertension: Chronic. BP is 125/75 today. - Continue bisoprolol/HCTZ - Continue to monitor (5) Hypercholesteremia: Chronic. Stable. - Continue pravastatin (6) Rheumatoid arthritis: Chronic. Stable. On exam today, no flare in any joints. - Continue Plaquenil - Continue MTX and Folic Acid - Continue home prednisone (7) DVT prophylaxis: SCDs - Low DVT risk per admission calculator. Early ambulation and discharge. Admission and Anticipated Discharge Date Admission Date: August 12, 2020 Subjective Some trouble overnight with continued prolapse rectum. It now has a bit of blood with it as well. Reports no fevers/chills, chest pain, shortness of breath, abdominal pain, nausea, or vomiting. Physical Exam Constitutional: WD/WN, vitals as above Eyes: EOM intact bilaterally; no conjunctival abnormality ENMT: external ear and nose normal, oropharynx normal Neck: trachea midline, no thyromegaly normal visual inspection Respiratory: normal respiratory effort, lungs clear to auscultation no respiratory distress Cardiovascular: RRR, no murmur, no edema Gastrointestinal (Abdomen): Inspection/Auscultation: abdomen normal to inspection; abdomen not distended Percussion/Palpation: abdomen soft; abdomen nontender, no guarding and abdomen not rigid Rectal Exam: normal visual inspection of rectum (Prolapse rectum reduced on my exam.); no rectal tenderness Musculoskeletal: no cyanosis or clubbing, extremities motor strength 5/5 Skin: no rashes, warm and dry Neurologic: moves all extremities and awake Psychiatric: Orientation: alert, oriented to person and cooperative Results & Data Results & Data ([facility]) Vital Signs (Past 12 Hours) Vital Signs Temp Pulse Resp BP Pulse Ox 08/15/20 07:09 36.5 C 55 L 16 126/75 90 PG Care Time/CCT Total # of Minutes Spent Total Time Spent with Patient: Total time spent is greater than 50% in coordination of care (as documented) at patient's floor/unit and/or counseling patient: Coding Level of Care Code 27312 Subseq Hosp Care Lvl 3 Diagnoses Memory loss R41.3 Rectal prolapse K62.3 Acute UTI N39.0 Hypertension I10 Hypertension type: essential hypertension Hypercholesteremia E78.00 Rheumatoid arthritis M06.9 Rheumatoid arthritis location: unspecified site Rheumatoid factor presence: unspecified presence DVT prophylaxis Z29.9 (1) Hypertension Hypertension type: essential hypertension Qualified Code(s): I10 - Essential (primary) hypertension (2) Rheumatoid arthritis Rheumatoid arthritis location: unspecified site Rheumatoid factor presence: unspecified presence Qualified Code(s): M06.9 - Rheumatoid arthritis, unspecified
[2020-08-16 06:27] LABS: Hematocrit (blood only) 41.2 % (37-47); Hemoglobin 14.1 g/dL (12.0-16.0); Mean Corpuscular Hemoglobin 31.8 pg (25-34); Mean Corpuscular Hgb Conc 34.2 g/dL (32-36); Mean Corpuscular Volume 92.8 fL (80-100); Mean Platelet Volume 9.8 fL (7.4-10.4); Platelet Count 293 K/uL (130-400); RDW Coefficient of Variation 14.8 % (11.5-14.5); RDW Standard Deviation 50.1 fL (36.4-46.3); Red Blood Count 4.44 M/uL (4.2-5.4); White Blood Count 8.36 K/uL (4.8-10.8)
[2020-08-16 06:55] LABS: BUN Creatinine Ratio 26.3 (10-20); Calcium 9.3 mg/dl (8.5-10.1); Creatinine Clr Calc Pharmacy 58.4 ml/min; Est GFR (African American) 87.9; Est GFR (Non-African American) 75.8; Potassium 3.4 mmol/L (3.5-5.1)
[2020-08-16] MEDS: DOCUSATE SODIUM 100 MG CAP PO SCH (08:50)
[2020-08-16] MEDS: hydroCHLOROthiazide 25 MG TAB PO SCH (08:50)
[2020-08-16] MEDS: CEFDINIR 300 MG CAP PO SCH (08:50)
[2020-08-16] MEDS: MULTIVITAMIN TAB PO SCH (08:51)
[2020-08-16] MEDS: HYDROXYCHLOROQUINE SULFATE 200 MG TAB PO SCH (08:51)
[2020-08-16] MEDS: predniSONE 5 MG TAB PO SCH (08:52)
[2020-08-16] MEDS: PRAVASTATIN SOD 20 MG TAB PO SCH (08:52)
[2020-08-16] MEDS: PSYLLIUM 58.6% POWDER PACKET PO SCH (08:52)
[2020-08-16] MEDS: BISOPROLOL FUMARATE 5 MG TAB PO SCH (08:52)
[2020-08-16] MEDS ORDERED: metHOTREXate sodium 2.5 MG TAB PO SCH (09:00)
--- NOTE | 2020-08-16 12:44 | Discharge Summary ---
Date of Service date of admission - August 12, 2020 date of discharge - August 16, 2020 Admission HPI Per Admitting Provider Uma Garcia is a 80yo female with history of HTN, HLP, RA and Dementia presenting with rectal prolapse and overall failure to thrive. She presents with her daughter. Daughter reports patient has been more confused lately and has been having more difficulty caring for herself. She lives alone in a senior community. Yesterday she called her daughter with concern for "something coming out of her butt". She was seen in the ER and found to have a rectal prolapse which was easily reduced. She had similar occurrence this evening which prompted a return to the ER. Daughter states that she is slightly more confused than usual. She reports a cognitive decline over the last 2 years with a more rapid decline over the last 2-3 months. She is concerned for her mother's well-being and would like to explore placement options. Principal Diagnosis 1. advancing dementia 2. rectal prolapse Discharge Exam Constitutional + altered mental status; no acute distress ENMT external ear and nose normal, oropharynx normal Respiratory Auscultation: + rales (Fine, dry, bibasilar rales) Cardiovascular Rate/Rhythm: regular rate and regular rhythm Heart Sounds: normal S1 and normal S2; no murmur Vessels: posterior tibial pulses present and dorsalis pedis pulses present; no JVD Extremities: no edema Gastrointestinal (Abdomen) normal bowel sounds, soft, nontender, no hepatosplenomegaly minimal protrusion of rectum; irritation of perirectal area and rectum itself Psychiatric Orientation: alert and oriented to person; + not oriented to place and + not oriented to time Discharge Data Allergies Allergy/AdvReac Type Severity Reaction Status Date / Time dexlansoprazole Allergy Unknown CAN'T Verified 08/12/20 19:43 [From Dexilant] REMEMBER pantoprazole AdvReac Intermediate Diarrhea Verified 08/12/20 19:43 Consultations PT, OT Ordered Studies 08/12/20 18:36 CT head/brain wo con Stat - no acute findings. 08/12/20 19:11 CT chest diagnostic w con Stat IMPRESSION: 1. Slight progression in the interstitial lung disease with subpleural reticulation lower lobe bronchiectasis 2. No evidence of acute parenchymal consolidation 3. Stable borderline enlarged mediastinal lymph nodes 08/12/20 20:27 CT abd pelvis IV con only Stat IMPRESSION: 1. No evidence of bowel obstruction. No evidence of free air 2. Pelvic floor relaxation 3. Rectal wall thickening with minimal infiltration of perirectal fat. Correlate clinically for evidence of rectal inflammation/proctitis 4. Diverticulosis. No evidence of acute diverticulitis. 5. Normal appendix 6. Lower lobe interstitial bony fibrotic changes with subpleural reticulation and lower lobe bronchiectasis. Hospital Course (1) Memory loss: Daughter reports progressive decline over the last 2 years with more rapid decline over the last 2-3 months. Mini-cognitive test performed by PCP with score of 3. Certainly appears she has a worsening dementia. Recommend checking B12 and B1 levels. TSH wnl. Consider referral to [facility] for additional dementia testing. (2) Rectal prolapse: Rectal prolapse - multiple episodes requiring reduction in ER as well as while admitted. Has associated proctitis on CT abd/pelvis. Recommendations: 1. referral to [facility] colorectal surgery - Dr Abhi Kilgore, [place] office at the [facility]. 2. anusol suppositories nightly x 7 days 3. anusol cream to perirectal area/rectal area every 6 hours as needed 4. colace 100mg BID 5. metamucil 1 serving daily (3) Acute UTI: Received combination of IV rocephin and oral cephalosporin. Will complete several more days of oral therapy after discharge. (4) Hypertension: Well-controlled. Continue bisoprolol/HCTZ. (5) Hypercholesteremia: Chronic. Stable. Continue pravastatin. (6) Rheumatoid arthritis: Chronic. Stable. No flares. Continue Plaquenil. Continue Methotrexate and Folic Acid. Continue home, chronic prednisone 5mg daily. Total Time Total Time Spent Total Time Spent (In Minutes): 35 Total Time Includes: Examination of the Patient, Discharge Planning and Medication Reconciliation Discharge Plan Discharge Items Patient Disposition: [facility] Reason For Visit: RECTAL PROLAPSE, WORSENING DEMENTIA Discharge Diagnosis: 1. rectal prolapse - colorectal surgery referral needed evan 2. worsening dementia 3. proctitis due to #1 4. rheumatoid arthritis 5. urinary tract infection 6. interstitial lung disease Condition on Discharge: Fair Activity: Resume your previous activity Non-emergency contact: Primary Care Provider and Surgeon Call non-emergency contact if: you have any medication questions, your symptoms worsen, your pain is not controlled and you have a fever Follow-up/Referrals: Abhi Kilgore MD [Other] (Colorectal surgery, [facility] at the [facility]. [facility] establish visit - diagnosis: rectal prolapse.) Bin Mckinnon III, MD [Primary Care Provider] - Diet: Heart Healthy Addtl Attending Provider Instructions: Patient has a significant rectal prolapse. She needs to see Dr Abhi Kilgore, colorectal surgeon with [facility], at the [place] location in [place] - [place] please. She will likely need surgery for this. Use anusol rectal suppository nightly x 7 days starting tonight. Use anusol rectal cream every q6h as needed for rectal discomfort. Can use this over the next 1-2 weeks. Colace 100mg twice daily. Fiber supplement once daily. Aim for 1 soft bowel movement on daily basis if possible. If the rectal prolapse gets "stuck" and does not reduce back into the body she should be seen in the emergency room at [facility]. Repeat BMP in 5 days for stability. Repeat magnesium level in 5 days for stability. Check B12 and B1 (thiamine) levels as well due to worsening memory. All results to administrative medical director. Pending Studies at Discharge: No Stand-Alone Forms: My [facility] Skilled Items Patient informed of condition?: Yes DNR: No Discharge Level of Care: Skilled Communicable Disease: No Discharge Prognosis: Stable Lines: None Urinary Catheter: No Medications and DC Order Prescriptions: New Metamucil (with sugar) 3.4 gram Powder In Packet 1 ea PO QAM Qty: 30 RF: 5 docusate sodium [Colace] 100 mg capsule 100 mg PO BID Qty: 60 RF: 5 hydrocortisone acetate [Anusol-HC] 25 mg suppository 25 mg GA HS 7 Days Qty: 1 RF: 0 hydrocortisone [Anusol-HC] 2.5 % cream with perineal applicator 1 applic GA Q6H PRN (Reason: rectal irritation) Qty: 30 RF: 1 Lactinex 1 million cell tablet,chewable 1 tab PO BID 5 Days Qty: 10 RF: 0 methotrexate sodium 2.5 mg Tablet 15 mg PO Fr@0900 Qty: 30 RF: 5 Continued pravastatin 20 mg tablet 20 mg PO DAILY Qty: 90 RF: 3 bisoprolol-hydrochlorothiazide 10-6.25 mg tablet 1 tab PO BID Qty: 60 RF: 11 hydroxychloroquine 200 mg tablet 200 mg PO DAILY Qty: 30 RF: 5 prednisone 5 mg tablet 5 mg PO DAILY Qty: 90 RF: 3 folic acid 1 mg tablet 1 mg PO [id number] RF: 0 multivitamin [Multiple Vitamins] Tablet 1 tab PO DAILY RF: 0 Discontinued methotrexate sodium 2.5 mg tablet 15 mg PO WK RF: 0 Discharge Orders: Discharge Order (Routine); Ordered 08/16/20 Ordered By: Fabrizio Guzman Admission Data Admit Date/Time: 08/12/20 22:07 Attending Provider: Fabrizio Guzman Admit Provider: Елена Black Primary Care Provider: Bin Mckinnon III Other Providers: Nikhil Escalante ; [facility] Other Interventions: Discharge Summary Assessment (RN) Last Done: 08/16/20 12:43 Coding Level of Care Code D/C Day Management >30 mins Diagnoses Memory loss R41.3 Rectal prolapse K62.3 Acute UTI N39.0 Hypertension I10 Hypertension type: essential hypertension Hypercholesteremia E78.00 Rheumatoid arthritis M06.9 Rheumatoid arthritis location: unspecified site Rheumatoid factor presence: unspecified presence
== END 2020-08-16 14:30 | DRG 394 ==
LOC: ED 16:31 → 3W 22:07 → SUATTDRO 22:07 → 3W 23:21